=== PATIENT | female | born 1950 | race Hispanic/Latino ===

== ENCOUNTER → 2018-07-22 | Day surgery (SDC) | payer MEDICARE ==
[2018-07-20 14:07] LABS: BASOPHILS % 0.4 % (0.0-1.0); EOSINOPHILS # (AUTO) 0.1 (0.0-0.4); EOSINOPHILS % 3.1 % (0.0-6.0); HEMATOCRIT 27.6 % (34.2-44.1); LYMPHOCYTES # (AUTO) 0.6 (1.0-3.2); LYMPHOCYTES % 12.7 % (18.0-39.1); MEAN CORPUSCULAR HEMOGLOBIN 28.5 pg (28-32); MEAN CORPUSCULAR HGB CONC 32.6 g/dL (31-35); MEAN CORPUSCULAR VOLUME 87.3 fL (81-99); MONOCYTES # (AUTO) 0.4 (0.2-0.8); MONOCYTES % 7.7 % (4.4-11.3); NEUTROPHILS # (AUTO) 3.5 (2.1-6.9); NEUTROPHILS % 75.7 % (38.7-80.0); PLATELET COUNT 180 x10e3/uL (140-360); RED BLOOD COUNT 3.16 x10e6/uL (3.6-5.1)
[~2018-07-22] MED LIST: ATORVASTATIN CA80 MG PO; BENZONATATE100 MG PO; CARVEDILOL6.25 MG; CILOSTAZOL100 MG PO; FENTANYL CITRATE/PF 100MCG/2 ML INJ ONE; FUROSEMIDE40 MG PO; GLIPIZIDE5 MG PO; JANUMET 50-1,01 EACH PO; JANUMET 50-5001 EACH; LEVAQUIN500 MG PO; LOSARTAN POTAS100 MG PO; METHYLPREDNISOLO4 MG PO; METOLAZONE5 MG PO; MIDAZOLAM HCL 2 MG/2 ML VIAL ONE; NEXIUM40 MG PO; PIOGLITAZONE HC45 MG PO; PROPOFOL IV EMULSION 10 MG/ML 50 ML VIAL ONE; TYLENOL WITH C1 EACH PO
--- OUTSIDE RECORDS SUMMARY | 2018-07-22 09:40 | XMS REPORT | Clinical Summary ---
Author Author [facility] Organization [facility] Address Unknown Phone Unavailable Care Team Providers Care Horn Player Name Role Phone Asked, No Pcp PCP Unavailable Allergies No Known Allergies Medications End Date Status Medication Sig Dispensed Refills Start Date Active atorvastatin (LIPITOR) 80 Take 80 mg by 0 MG tablet mouth nightly. Active carvedilol (COREG) 6.25 Take 6.25 mg 0 MG tablet by mouth 2 (two) times a day with meals. Active cilostazol (PLETAL) 100 Take 100 mg 0 MG tablet by mouth daily. Take after dinner Active esomeprazole (NexIUM) 40 Take 40 mg by 0 MG capsule mouth daily before breakfast. Active glipiZIDE (GLUCOTROL) 10 Take 10 mg by 0 MG tablet mouth 2 (two) times a day before meals. Active losartan (COZAAR) 100 MG Take 100 mg 0 tablet by mouth daily. Active sitaGLIPtin (JANUVIA) 50 Take 50 mg by 0 MG tablet mouth 2 (two) times a day. Active metFORMIN (GLUCOPHAGE) Take 1,000 mg 0 1,000 mg tablet by mouth 2 (two) times a day with meals. 10/06/2018 Active ergocalciferol (VITAMIN Take 1 4 capsule 11 D2) 50,000 unit capsule capsule 8 (50,000 Units total) by mouth once a week. Active REGRANEX 0.01 % gel Apply a bruce 1 thick (04/21 8 inch) layer to ulcer every day as directed. 12 hours on and 12 hours off Active cephalexin (KEFLEX) 500 TK 1 C PO TID 0 MG capsule FOR 10 DAYS 8 Active cyanocobalamin 1,000 INJECT 1ML IN 2 mcg/mL injection THE MUSCLE Q 8 MONTH Active pioglitazone (ACTOS) 30 TK 1 T PO 4 MG tablet ONCE D FOR 8 DIABETES Active sulfamethoxazole-trimetho TK 1 T PO BID 0 prim (BACTRIM DS) 800-160 FOR 14 DAYS. 8 mg per tablet DRK PLENTY OF FLUIDS Active terbinafine HCl (LamiSIL) TK 1 T PO D. 1 250 mg tablet NO ALCOHOL 8 DURING THIS TIME Active traMADol (ULTRAM) 50 mg TK 1 T PO Q 6 1 tablet H PRN 8 10/06/2017 Discontinued traMADol (ULTRAM) 50 mg Take 50 mg by 0 tablet mouth every 4 (four) hours. As needed 10/30/2017 Discontinued aspirin (ECOTRIN) 325 MG Take 1 tablet 30 tablet 0 enteric coated tablet (325 mg 8 total) by mouth daily for 30 days. 11/05/2017 insulin NPH (HumuLIN-N) Inject 15 10 mL 12 100 unit/mL injection Units under 8 the skin nightly for 30 days. 11/05/2017 insulin NPH (HumuLIN-N) Inject 20 10 mL 12 100 unit/mL injection Units under 8 the skin daily for 30 days. 11/06/2017 spironolactone Take 1 tablet 30 tablet 0 (ALDACTONE) 25 MG tablet (25 mg total) 8 by mouth daily for 30 days. 11/06/2017 clopidogrel (PLAVIX) 75 Take 1 tablet 30 tablet 0 mg tablet (75 mg total) 8 by mouth daily for 30 days. 11/05/2017 riFAXimin (XIFAXAN) 550 Take 1 tablet 60 tablet 0 mg tablet (550 mg 8 total) by mouth 2 (two) times a day for 30 days. 11/05/2017 nystatin (MYCOSTATIN) Apply 100 g 0 100,000 unit/gram powder topically 2 8 (two) times a day for 30 days. 10/11/2017 traMADol (ULTRAM) 50 mg Take 1 tablet 10 tablet 0 tablet (50 mg total) 8 by mouth every 8 (eight) hours as needed for moderate pain for up to 5 days. As needed Active Problems Problem Noted Date Gastrointestinal hemorrhage 10/29/2017 Electrolyte abnormality 10/29/2017 Liver, cirrhosis, portal 09/20/2017 Esophageal varices in cirrhosis 09/20/2017 Essential hypertension 09/20/2017 Type 2 diabetes mellitus with circulatory disorder 09/20/2017 Coronary artery disease involving nondalton coronary artery of nondalton heart 09/20/2017 without angina pectoris Colostomy present on admission 09/20/2017 Electrolyte abnormality 09/19/2017 Skin ulcer of toe of right foot with fat layer exposed 09/19/2017 GI bleed 09/18/2017 Gastrointestinal hemorrhage with melena 09/18/2017 Overview: Added automatically from request for surgery [id number] Encounters Care Team Description Date Type Specialty Yehuda Contreras MD Bavare, MD Ruddy Rice Amitkumar Natvarlal, MD Gastrointestinal hemorrhage, unspecified gastrointestinal hemorrhage type (Primary Dx) 10/28/2017 Emergency General Surgery - 10/30/2017 Abdiaziz Troncoso MD Removal of bere (Primary Dx) 10/15/2017 Office Visit General Surgery Idalia Hernandez LVN 10/15/2017 Telephone Hepatology Abdiaziz Troncoso MD 10/08/2017 Office Visit General Surgery Lamar Stevenson NP 10/06/2017 Refill Endocrinology Lainey Livingston MD 10/05/2017 Anesthesia Orthopedic Surgery Event Manjeet Magana DPM AMPUTATION, SECOND TOE 10/05/2017 Surgery Orthopedic Surgery Jason Rockwell MD 09/30/2017 Anesthesia General Surgery Event Abdiaziz Troncoso MD RIGHT FEMORAL POPLITEAL BYPASS 09/30/2017 Surgery General Surgery Glenna Riggs MA Shortness of breath (Primary Dx) 09/30/2017 Orders Only Pulmonology Wisam Luna MD Cv aortogram abdominal aorta with BLE runoff [16415 (CPT)] 09/29/2017 Surgery Procedural Cardiology Roxanne Umaña 09/24/2017 Orders Only General Internal Medicine Mynor Strong MD 09/22/2017 Anesthesia Gastroenterology Event Evi Banks MD EUS @ BS with vascular coil placement and glue injection 09/22/2017 Surgery Gastroenterology Mohamud Powell MD 09/22/2017 Documentation Gastroenterology Ethan Oquendo II, NELLY 09/20/2017 Anesthesia General Surgery Event Licha Blevins MD ESOPHAGOGASTRODUODENOSCOPY (EGD) 09/20/2017 Surgery General Surgery Hernan Booker MD Joglekar, Swati, MD Patel, MD [place] Suzanne K., MD Osteomyelitis (Primary Dx); Iron deficiency anemia due to chronic blood loss; Essential hypertension; Gastrointestinal hemorrhage, unspecified gastrointestinal hemorrhage type; Type 2 diabetes mellitus with other ophthalmic complication, without long-term current use of insulin; Gastrointestinal hemorrhage with melena; Pulmonary hypertension; Liver, cirrhosis, portal; Peripheral arterial disease 09/18/2017 Hospital Cardiovascular - Encounter 10/06/2017 after 07/21/2017 Family History Medical History Relation Name Comments Diabetes Brother Diabetes Father Hypertension Father Diabetes Mother Diabetes Sister Relation Name Status Comments Brother Father Mother Sister Social History Date Tobacco Use Types Packs/Day Years Used Former Smoker Cigarettes Smokeless Tobacco: Former User Alcohol Use Drinks/Week oz/Week Comments No Sex Assigned at Date Recorded Not on file Industry Job Start Date Occupation Not on file Not on file Not on file Travel End Travel History Travel Start No recent travel history available. Last Filed Vital Signs Time Taken Vital Sign Reading 10/30/2017 7:26 AM CDT Blood Pressure 126/68 10/30/2017 7:26 AM CDT Pulse 66 10/30/2017 7:26 AM CDT Temperature 36.4 C (97.5 F) 10/30/2017 7:26 AM CDT Respiratory Rate 18 10/30/2017 7:26 AM CDT Oxygen Saturation 99% - Inhaled Oxygen - Concentration 10/08/2017 4:11 PM CDT Weight 83 kg (183 lb) 10/29/2017 2:55 AM CDT Height 160 cm (5' 3") 10/08/2017 4:11 PM CDT Body Mass Index 33.47 Plan of Treatment Health Maintenance Due Date Last Done Comments DIABETIC RETINAL EYE EXAM 1950 URINE MICROALBUMIN 1958 BREAST CANCER SCREENING 1998 COLON CANCER SCREENING 1998 SHINGLES VACCINES (#1) 1998 65+ PNEUMOCOCCAL VACCINE 2013 (1 of 2 - PCV13) PNEUMOCOCCAL 2013 POLYSACCHARIDE VACCINE AGE 65 AND OVER DIABETIC FOOT EXAM 09/19/2018 09/19/2017, 09/19/2017 INFLUENZA VACCINE 11/04/2018 Implants Device Identifier Shelf Expiration Date Model / Serial / Lot Implanted Type Area Manufactur er 04/28/2022 [id number] / [id number] / [id number] Graft Vasclr [employer] Vascular N/A: N/A [employer] Ringed [id number] - [id number] Graft Implanted: 09/30/2017 (Quantity not on file) Procedures Comments Procedure Name Priority Date/Time Associated Diagnosis TRANSFUSE RED BLOOD CELLS Routine 12/09/2017 5:55 PM CDT POC GLUCOSE Routine 10/30/2017 7:44 AM CDT POC GLUCOSE Routine 10/30/2017 6:37 AM CDT ZZESTIMATED GFR Routine 10/30/2017 4:15 AM CDT HC COMPLETE BLD COUNT Routine 10/30/2017 W/AUTO DIFF 4:15 AM CDT BASIC METABOLIC PANEL Routine 10/30/2017 4:15 AM CDT POC GLUCOSE Routine 10/29/2017 10:06 PM CDT POC GLUCOSE Routine 10/29/2017 5:02 PM CDT HEMOGLOBIN & HEMATOCRIT Routine 10/29/2017 4:03 PM CDT POC GLUCOSE Routine 10/29/2017 10:53 AM CDT TRANSFUSE RED BLOOD CELLS STAT 10/29/2017 9:46 AM CDT POC GLUCOSE Routine 10/29/2017 7:12 AM CDT TRANSFUSE RED BLOOD CELLS STAT 10/29/2017 5:33 AM CDT POC GLUCOSE Routine 10/29/2017 3:05 AM CDT ECG 12-LEAD STAT 10/29/2017 1:48 AM CDT GA CRITICAL CARE, E/M Routine 10/29/2017 30-74 MINUTES 12:50 AM CDT PREPARE RBC Timed 10/28/2017 11:42 PM CDT ZZESTIMATED GFR STAT 10/28/2017 11:42 PM CDT LIPASE LEVEL STAT 10/28/2017 11:42 PM CDT COMPREHENSIVE METABOLIC STAT 10/28/2017 PANEL 11:42 PM CDT TYPE AND SCREEN Routine 10/28/2017 11:42 PM CDT PARTIAL THROMBOPLASTIN STAT 10/28/2017 TIME (PTT) 11:42 PM CDT PROTHROMBIN TIME WITH INR STAT 10/28/2017 11:42 PM CDT HC COMPLETE BLD COUNT STAT 10/28/2017 W/AUTO DIFF 11:42 PM CDT POC GLUCOSE Routine 10/06/2017 11:11 AM CDT HEMOGLOBIN & HEMATOCRIT Routine 10/06/2017 10:02 AM CDT POC GLUCOSE Routine 10/06/2017 8:01 AM CDT POC GLUCOSE Routine 10/06/2017 7:28 AM CDT ZZESTIMATED GFR Routine 10/06/2017 4:30 AM CDT BASIC METABOLIC PANEL Routine 10/06/2017 4:30 AM CDT CBC HEMOGRAM Routine 10/06/2017 4:30 AM CDT POC GLUCOSE Routine 10/05/2017 11:07 PM CDT XR FOOT 3+ VW RIGHT Routine 10/05/2017 8:52 PM CDT POC GLUCOSE Routine 10/05/2017 6:01 PM CDT SURGICAL PATHOLOGY Routine 10/05/2017 REQUEST 4:46 PM CDT POC GLUCOSE Routine 10/05/2017 4:29 PM CDT AFB CULTURE Timed 10/05/2017 Osteomyelitis 4:11 PM CDT AEROBIC CULTURE Timed 10/05/2017 Osteomyelitis 4:11 PM CDT FUNGUS CULTURE Timed 10/05/2017 Osteomyelitis 4:11 PM CDT ANAEROBIC CULTURE Timed 10/05/2017 Osteomyelitis 4:11 PM CDT FUNGUS SMEAR Timed 10/05/2017 4:02 PM CDT AFB STAIN Timed 10/05/2017 4:02 PM CDT GRAM STAIN Timed 10/05/2017 4:02 PM CDT AFB CULTURE Timed 10/05/2017 Osteomyelitis 4:02 PM CDT AEROBIC CULTURE Timed 10/05/2017 Osteomyelitis 4:02 PM CDT FUNGUS CULTURE Timed 10/05/2017 Osteomyelitis 4:02 PM CDT ANAEROBIC CULTURE Timed 10/05/2017 Osteomyelitis 4:02 PM CDT AMPUTATION, TOE 10/05/2017 Osteomyelitis 3:00 PM CDT Case Notes TF REInocencio 1500 START, @1131 MICHAEL REQ CASE TO SARAH 10/02/17TW ([facility] STAFF TO SARAH), @1623 FRANCISCO AND MICHAEL MV CASE BACK TO [facility]IA [facility]Y 10/02/17TW Special Needs TF, REQ 1500 START POC GLUCOSE Routine 10/05/2017 2:51 PM CDT SPIROMETRY PRE AND POST Routine 10/05/2017 Pulmonary hypertension WITH BRONCHILATOR, 11:37 AM CDT DIFFUSION, LUNG VOLUMES URINALYSIS SCREEN AND Routine 10/05/2017 MICROSCOPY, WITH REFLEX 8:46 AM CDT TO CULTURE GRAM STAIN Routine 10/05/2017 8:46 AM CDT URINE CULTURE Routine 10/05/2017 8:46 AM CDT POC GLUCOSE Routine 10/05/2017 7:53 AM CDT HC COMPLETE BLD COUNT STAT 10/05/2017 W/AUTO DIFF 5:52 AM CDT ZZESTIMATED GFR Routine 10/05/2017 4:00 AM CDT BASIC METABOLIC PANEL Routine 10/05/2017 4:00 AM CDT SMEAR REVIEW Routine 10/05/2017 3:50 AM CDT TYPE AND SCREEN Routine 10/05/2017 3:50 AM CDT PROTHROMBIN TIME WITH INR Routine 10/05/2017 3:50 AM CDT HC COMPLETE BLD COUNT Routine 10/05/2017 W/AUTO DIFF 3:50 AM CDT POC GLUCOSE Routine 10/05/2017 1:43 AM CDT POC GLUCOSE Routine 10/04/2017 8:39 PM CDT POC GLUCOSE Routine 10/04/2017 4:48 PM CDT POC GLUCOSE Routine 10/04/2017 11:38 AM CDT POC GLUCOSE Routine 10/04/2017 7:31 AM CDT ZZESTIMATED GFR Routine 10/04/2017 3:12 AM CDT MAGNESIUM LEVEL Routine 10/04/2017 3:12 AM CDT BASIC METABOLIC PANEL Routine 10/04/2017 3:12 AM CDT POC GLUCOSE Routine 10/03/2017 8:55 PM CDT POC GLUCOSE Routine 10/03/2017 4:58 PM CDT POC GLUCOSE Routine 10/03/2017 12:21 PM CDT HC COMPLETE BLD COUNT Routine 10/03/2017 W/AUTO DIFF 8:13 AM CDT POC GLUCOSE Routine 10/03/2017 8:11 AM CDT ZZESTIMATED GFR Routine 10/03/2017 4:00 AM CDT BASIC METABOLIC PANEL Routine 10/03/2017 4:00 AM CDT VITAMIN D 25 HYDROXY Routine 10/03/2017 LEVEL 4:00 AM CDT POC GLUCOSE Routine 10/02/2017 8:38 PM CDT POC GLUCOSE Routine 10/02/2017 4:45 PM CDT POC GLUCOSE Routine 10/02/2017 3:39 PM CDT POC GLUCOSE Routine 10/02/2017 11:35 AM CDT CBC WITH PLATELET AND Routine 10/02/2017 DIFFERENTIAL 8:19 AM CDT POC GLUCOSE Routine 10/02/2017 7:41 AM CDT ZZESTIMATED GFR Routine 10/02/2017 4:00 AM CDT BASIC METABOLIC PANEL Routine 10/02/2017 4:00 AM CDT POC GLUCOSE Routine 10/01/2017 9:03 PM CDT HEPATIC FUNCTION PANEL Routine 10/01/2017 5:43 PM CDT POC GLUCOSE Routine 10/01/2017 5:01 PM CDT POC GLUCOSE Routine 10/01/2017 1:19 PM CDT POC GLUCOSE Routine 10/01/2017 11:35 AM CDT POC GLUCOSE Routine 10/01/2017 11:29 AM CDT POC GLUCOSE Routine 10/01/2017 7:45 AM CDT PHOSPHORUS LEVEL Routine 10/01/2017 4:00 AM CDT MAGNESIUM LEVEL Routine 10/01/2017 4:00 AM CDT ZZESTIMATED GFR Routine 10/01/2017 4:00 AM CDT HC COMPLETE BLD COUNT Routine 10/01/2017 W/AUTO DIFF 4:00 AM CDT BASIC METABOLIC PANEL Routine 10/01/2017 4:00 AM CDT POC GLUCOSE Routine 09/30/2017 9:01 PM CDT XR CHEST 1 VW PORTABLE Routine 09/30/2017 5:57 PM CDT POC GLUCOSE Routine 09/30/2017 5:43 PM CDT OR FL < 1 HOUR Routine 09/30/2017 Peripheral arterial 4:12 PM CDT disease CENTRAL LINE Routine 09/30/2017 2:48 PM CDT Procedure Note - Jason Rockwell, MD - 09/30/2017 2:48 PM CDT Central line Performed by: JASON ROCKWELL Authorized by: JASON ROCKWELL Patient Location: OR Start Time: 09/30/2017 2:30 PM End Time: 09/30/2017 2:37 PM Staff: Performed by: Anesthesio logist Preprocedu re:patient identified , IV checked, site and side verified, risks and benefits discussed, procedure verified, surgical consent complete, patient position confirmed, monitors and equipment checked and pre-op evaluation complete MSBT: antiseptic used during central venous catheter insertion, all elements of maximal sterile barrier technique followed, hand hygiene performed prior to central venous catheter insertion, cap/gown used by other personnel during central venous catheter insertion, solutions labeled and all ports not used during insertion clamped TIme Out Performed: 09/30/2017 2:30 PM Indication s: Indication s: Vascular access Anesthesia : Anesthesia : General Procedure details: Patient position: Supine Catheter Type: Double lumen Catheter Size: 8 Fr Catheter Site: internal jugular vein Catheter site laterality : Right Ultrasound guidance used: No Ultrasound image saved: No Number of attempts: 1 Successful placement: Yes Guidewire removal witnessed by: Dorie MOSES Post-proce dure: Post-proce dure: line sutured and sterile dressing applied per protocol Post-proce dure: Blood cleaned with CHG and sterile caps on all hubs Assessment : Blood return through all ports and free fluid flow Patient tolerance: Patient tolerated the procedure well with no immediate complicati ons ARTERIAL LINE Routine 09/30/2017 2:47 PM CDT Procedure Note - Jason Rockwell MD - 09/30/2017 2:47 PM CDT Arterial line Performed by: JASON ROCKWELL Authorized by: JASON ROCKWELL Patient Location: OR Start Time: 09/30/2017 2:24 PM End Time: 09/30/2017 2:29 PM Staff: Performed by: Sharri donohue Pre-proced ure: patient identified , IV checked, site and side verified, risks and benefits discussed, procedure verified, surgical consent complete, patient position confirmed, monitors and equipment checked and pre-op evaluation complete MSBT: antiseptic used, all elements of maximal sterile barrier technique followed, hand hygiene performed, cap/gown used by other personnel and solutions labeled TIme Out Performed: 09/30/2017 2:24 PM Indication s: Indication s: multiple ABGs and hemodynami c monitoring Anesthesia : Anesthesia : General Procedure Details: Arterial Line placement: Placed post induction Line placement site: Radial Line placement side: Right Arterial line gauge: 20 G Number of attempts: 1 Ultrasound guidance used: No Post-proce dure: Post-proce dure: Sterile dressing applied Post procedure circulatio n, sensation, movement: Normal and unchanged Patient tolerance: Patient tolerated the procedure well with no immediate complicati ons GA AN ELECTIVE Routine 09/30/2017 ENDOTRACHEAL AIRWAY 2:42 PM CDT Procedure Note - Jason Rockwlel MD - 09/30/2017 2:42 PM CDT Airway Performed by: JASON ROCKWELL Authorized by: JASON ROCKWELL Location: OR Urgency: Elective Difficult Airway: No Preoxygena dwight with 100% O2: Yes C-spine Precaution s Maintained Throughout : Yes Mask Ventilatio n: Easy mask Final Airway Type: Endotrache al airway Final Endotrache al Airway: ETT Technique Used: Direct laryngosco py Blade Type: Ku Laryngosco pe Blade/Vide olaryngosc ope Blade Size: 2 ETT Size (mm): 7.0 Measured from: Lips ETT to Lips (cm): 21 Placement Verified by: CO2 detection, direct visualizat ion and equal breath sounds Laryngosco pic view: Grade I - full view of glottis Rapid Sequence Induction (RSI): No Modified RSI: No Number of Attempts at Approach: 1 CREATION, BYPASS, 09/30/2017 Peripheral arterial ARTERIAL, FEMORAL TO 1:10 PM CDT disease POPLITEAL, USING VEIN GRAFT POC GLUCOSE Routine 09/30/2017 12:19 PM CDT POC GLUCOSE Routine 09/30/2017 8:42 AM CDT ZZESTIMATED GFR Routine 09/30/2017 5:53 AM CDT PHOSPHORUS LEVEL Routine 09/30/2017 5:53 AM CDT MAGNESIUM LEVEL Routine 09/30/2017 5:53 AM CDT PARTIAL THROMBOPLASTIN Routine 09/30/2017 TIME (PTT) 5:53 AM CDT PROTHROMBIN TIME WITH INR Routine 09/30/2017 5:53 AM CDT CBC WITH PLATELET AND Routine 09/30/2017 DIFFERENTIAL 5:53 AM CDT BASIC METABOLIC PANEL Routine 09/30/2017 5:53 AM CDT POC GLUCOSE Routine 09/30/2017 4:47 AM CDT POC GLUCOSE Routine 09/30/2017 12:52 AM CDT TRANSFUSE RED BLOOD CELLS Routine 09/29/2017 9:44 PM CDT POC GLUCOSE Routine 09/29/2017 9:13 PM CDT POC GLUCOSE Routine 09/29/2017 5:53 PM CDT PREPARE RBC STAT 09/29/2017 4:56 PM CDT PREPARE PLATELET PHERESIS STAT 09/29/2017 4:56 PM CDT PREPARE FRESH FROZEN STAT 09/29/2017 PLASMA 4:56 PM CDT PREPARE RBC STAT 09/29/2017 4:56 PM CDT PREPARE RBC STAT 09/29/2017 4:56 PM CDT PARTIAL THROMBOPLASTIN STAT 09/29/2017 TIME (PTT) 4:56 PM CDT PROTHROMBIN TIME WITH INR STAT 09/29/2017 4:56 PM CDT TYPE AND SCREEN STAT 09/29/2017 4:56 PM CDT MAGNESIUM LEVEL STAT 09/29/2017 3:29 PM CDT POTASSIUM LEVEL STAT 09/29/2017 3:29 PM CDT POC GLUCOSE Routine 09/29/2017 12:12 PM CDT POC GLUCOSE Routine 09/29/2017 9:29 AM CDT CV AORTOGRAM ABDOMINAL Routine 09/29/2017 AORTA 9:02 AM CDT POC GLUCOSE Routine 09/29/2017 8:04 AM CDT POC GLUCOSE Routine 09/29/2017 5:20 AM CDT ZZESTIMATED GFR Routine 09/29/2017 5:08 AM CDT HC COMPLETE BLD COUNT Routine 09/29/2017 W/AUTO DIFF 5:08 AM CDT BASIC METABOLIC PANEL Routine 09/29/2017 5:08 AM CDT POC GLUCOSE Routine 09/28/2017 9:58 PM CDT POC GLUCOSE Routine 09/28/2017 5:39 PM CDT COPPER, URINE Routine 09/28/2017 4:08 PM CDT POTASSIUM LEVEL Timed 09/28/2017 4:00 PM CDT POC GLUCOSE Routine 09/28/2017 11:48 AM CDT NM CARDIAC SHUNT Routine 09/28/2017 EVALUATION 10:54 AM CDT NM LUNG VENTILATION Routine 09/28/2017 PERFUSION 10:53 AM CDT POC GLUCOSE Routine 09/28/2017 7:21 AM CDT POC GLUCOSE Routine 09/28/2017 5:38 AM CDT ZZESTIMATED GFR Routine 09/28/2017 4:30 AM CDT B NATRIURETIC PEPTIDE Routine 09/28/2017 4:30 AM CDT HC COMPLETE BLD COUNT Routine 09/28/2017 W/AUTO DIFF 4:30 AM CDT BASIC METABOLIC PANEL Routine 09/28/2017 4:30 AM CDT POC GLUCOSE Routine 09/27/2017 9:32 PM CDT POC GLUCOSE Routine 09/27/2017 5:24 PM CDT POC GLUCOSE Routine 09/27/2017 5:[address] CHEST WO CONTRAST Routine 09/27/2017 2:34 PM CDT POC GLUCOSE Routine 09/27/2017 12:17 PM CDT POC GLUCOSE Routine 09/27/2017 7:58 AM CDT POC GLUCOSE Routine 09/27/2017 6:54 AM CDT ZZESTIMATED GFR Routine 09/27/2017 3:00 AM CDT HC COMPLETE BLD COUNT Routine 09/27/2017 W/AUTO DIFF 3:00 AM CDT COMPREHENSIVE METABOLIC Routine 09/27/2017 PANEL 3:00 AM CDT POC GLUCOSE Routine 09/26/2017 9:03 PM CDT POC GLUCOSE Routine 09/26/2017 5:50 PM CDT POC GLUCOSE Routine 09/26/2017 12:06 PM CDT POC GLUCOSE Routine 09/26/2017 7:48 AM CDT ZZESTIMATED GFR Routine 09/26/2017 5:45 AM CDT HEMOGLOBIN & HEMATOCRIT Routine 09/26/2017 5:45 AM CDT BASIC METABOLIC PANEL Routine 09/26/2017 5:45 AM CDT POC GLUCOSE Routine 09/26/2017 5:43 AM CDT POC GLUCOSE Routine 09/25/2017 9:16 PM CDT POC GLUCOSE Routine 09/25/2017 6:04 PM CDT POC GLUCOSE Routine 09/25/2017 12:19 PM CDT POC GLUCOSE Routine 09/25/2017 9:47 AM CDT ZZESTIMATED GFR Routine 09/25/2017 5:28 AM CDT IONIZED CALCIUM Routine 09/25/2017 5:28 AM CDT PHOSPHORUS LEVEL Routine 09/25/2017 5:28 AM CDT MAGNESIUM LEVEL Routine 09/25/2017 5:28 AM CDT CBC WITH PLATELET AND Routine 09/25/2017 DIFFERENTIAL 5:28 AM CDT BASIC METABOLIC PANEL Routine 09/25/2017 5:28 AM CDT POC GLUCOSE Routine 09/25/2017 4:44 AM CDT ARTERIAL BLOOD GAS Routine 09/25/2017 12:45 AM CDT POC GLUCOSE Routine 09/24/2017 9:35 PM CDT ARTERIAL BLOOD GAS Routine 09/24/2017 7:40 PM CDT POC GLUCOSE Routine 09/24/2017 6:35 PM CDT POC GLUCOSE Routine 09/24/2017 12:25 PM CDT POC GLUCOSE Routine 09/24/2017 9:04 AM CDT ZZESTIMATED GFR Routine 09/24/2017 7:08 AM CDT CRP HIGH SENSITIVITY Routine 09/24/2017 7:08 AM CDT SEDIMENTATION RATE Routine 09/24/2017 7:08 AM CDT IONIZED CALCIUM Routine 09/24/2017 7:08 AM CDT PHOSPHORUS LEVEL Routine 09/24/2017 7:08 AM CDT MAGNESIUM LEVEL Routine 09/24/2017 7:08 AM CDT HC COMPLETE BLD COUNT Routine 09/24/2017 W/AUTO DIFF 7:08 AM CDT BASIC METABOLIC PANEL Routine 09/24/2017 7:08 AM CDT POC GLUCOSE Routine 09/23/2017 9:13 PM CDT POC GLUCOSE Routine 09/23/2017 5:27 PM CDT POC GLUCOSE Routine 09/23/2017 12:13 PM CDT US DUPLEX ARTERIAL LOWER STAT 09/23/2017 EXTREMITY LEFT 11:58 AM CDT HC COMPLETE BLD COUNT Routine 09/23/2017 W/AUTO DIFF 9:54 AM CDT ZZESTIMATED GFR Routine 09/23/2017 9:00 AM CDT IONIZED CALCIUM Routine 09/23/2017 9:00 AM CDT PHOSPHORUS LEVEL Routine 09/23/2017 9:00 AM CDT MAGNESIUM LEVEL Routine 09/23/2017 9:00 AM CDT BASIC METABOLIC PANEL Routine 09/23/2017 9:00 AM CDT POC GLUCOSE Routine 09/23/2017 8:36 AM CDT POC GLUCOSE Routine 09/23/2017 4:56 AM CDT ZZESTIMATED GFR Routine 09/23/2017 2:59 AM CDT IONIZED CALCIUM Routine 09/23/2017 2:59 AM CDT PHOSPHORUS LEVEL Routine 09/23/2017 2:59 AM CDT MAGNESIUM LEVEL Routine 09/23/2017 2:59 AM CDT BASIC METABOLIC PANEL Routine 09/23/2017 2:59 AM CDT HC COMPLETE BLD COUNT Routine 09/23/2017 W/AUTO DIFF 2:35 AM CDT POC GLUCOSE Routine 09/23/2017 1:19 AM CDT POC GLUCOSE Routine 09/22/2017 7:11 PM CDT POC GLUCOSE Routine 09/22/2017 4:02 PM CDT ESOPHAGOGASTRODUODENOSCOP 09/22/2017 Gastrointestinal Y (EGD) 3:00 PM CDT hemorrhage with melena US UPPER GI TRACT, 09/22/2017 Gastrointestinal ENDOSCOPIC 3:00 PM CDT hemorrhage with melena US DUPLEX ARTERIAL LOWER Routine 09/22/2017 EXTREMITY RIGHT 2:45 PM CDT POC GLUCOSE Routine 09/22/2017 11:40 AM CDT HC COMPLETE BLD COUNT STAT 09/22/2017 W/AUTO DIFF 9:05 AM CDT POC GLUCOSE Routine 09/22/2017 8:07 AM CDT POC GLUCOSE Routine 09/22/2017 4:35 AM CDT ZZESTIMATED GFR Routine 09/22/2017 3:32 AM CDT HEPATIC FUNCTION PANEL Routine 09/22/2017 3:32 AM CDT BASIC METABOLIC PANEL Routine 09/22/2017 3:32 AM CDT PREPARE RBC Timed 09/22/2017 3:00 AM CDT SMEAR REVIEW Routine 09/22/2017 3:00 AM CDT TYPE AND SCREEN Timed 09/22/2017 3:00 AM CDT PROTHROMBIN TIME WITH INR Routine 09/22/2017 3:00 AM CDT HC COMPLETE BLD COUNT Routine 09/22/2017 W/AUTO DIFF 3:00 AM CDT POC GLUCOSE Routine 09/22/2017 12:58 AM CDT POC GLUCOSE Routine 09/21/2017 8:29 PM CDT HEMOGLOBIN & HEMATOCRIT Routine 09/21/2017 8:15 PM CDT POC GLUCOSE Routine 09/21/2017 5:13 PM CDT LIVER-KIDNEY MICROSOME Routine 09/21/2017 AB, IGG 4:45 PM CDT POC GLUCOSE Routine 09/21/2017 2:53 PM CDT MRI FOOT WO CONTRAST Routine 09/21/2017 RIGHT 2:[address] ABDOMEN WWO CONTRAST Routine 09/21/2017 PELVIS W CONTRAST 1:22 PM CDT CARCINOEMBRYONIC ANTIGEN Routine 09/21/2017 (CEA) 10:26 AM CDT ALPHA FETOPROTEIN Routine 09/21/2017 10:26 AM CDT IMMUNOGLOBULIN M Routine 09/21/2017 10:26 AM CDT IMMUNOGLOBULIN A Routine 09/21/2017 10:26 AM CDT IMMUNOGLOBULIN G Routine 09/21/2017 10:26 AM CDT FERRITIN LEVEL Routine 09/21/2017 10:26 AM CDT CERULOPLASMIN LEVEL Routine 09/21/2017 10:26 AM CDT ALPHA-1 ANTITRYPSIN LEVEL Routine 09/21/2017 10:26 AM CDT LIPID PANEL Routine 09/21/2017 10:26 AM CDT XR CHEST 1 VW PORTABLE STAT 09/21/2017 10:12 AM CDT HEMOGLOBIN & HEMATOCRIT Routine 09/21/2017 9:57 AM CDT POC GLUCOSE Routine 09/21/2017 8:14 AM CDT HEMOGLOBIN & HEMATOCRIT Timed 09/21/2017 6:10 AM CDT POC GLUCOSE Routine 09/21/2017 4:54 AM CDT ZZESTIMATED GFR Routine 09/21/2017 12:34 AM CDT PHOSPHORUS LEVEL Routine 09/21/2017 12:34 AM CDT MAGNESIUM LEVEL Routine 09/21/2017 12:34 AM CDT HEPATIC FUNCTION PANEL Routine 09/21/2017 12:34 AM CDT BASIC METABOLIC PANEL Routine 09/21/2017 12:34 AM CDT POC GLUCOSE Routine 09/21/2017 12:27 AM CDT PROTHROMBIN TIME WITH INR Routine 09/21/2017 12:20 AM CDT HC COMPLETE BLD COUNT Routine 09/21/2017 W/AUTO DIFF 12:20 AM CDT FUNGUS SMEAR Routine 09/20/2017 10:40 PM CDT AFB STAIN Routine 09/20/2017 10:40 PM CDT GRAM STAIN Routine 09/20/2017 10:40 PM CDT FUNGUS CULTURE Routine 09/20/2017 10:40 PM CDT ANAEROBIC CULTURE Routine 09/20/2017 10:40 PM CDT AFB CULTURE Routine 09/20/2017 10:40 PM CDT AEROBIC CULTURE Routine 09/20/2017 10:40 PM CDT POC GLUCOSE Routine 09/20/2017 10:07 PM CDT ECHOCARDIOGRAM 2D STAT 09/20/2017 COMPLETE W MMODE SPECTRAL 6:36 PM CDT COLOR DOPPLER ([id number]) CONSULT TO OSTOMY CARE Routine 09/20/2017 NURSE 4:45 PM CDT THYROID STIMULATING STAT 09/20/2017 HORMONE 4:31 PM CDT ZZESTIMATED GFR STAT 09/20/2017 4:31 PM CDT HEPATIC FUNCTION PANEL STAT 09/20/2017 4:31 PM CDT IONIZED CALCIUM STAT 09/20/2017 4:31 PM CDT PHOSPHORUS LEVEL STAT 09/20/2017 4:31 PM CDT MAGNESIUM LEVEL STAT 09/20/2017 4:31 PM CDT BASIC METABOLIC PANEL STAT 09/20/2017 4:31 PM CDT JESSY TITER Routine 09/20/2017 4:15 PM CDT ANTI MITOCHONDRIA SCREEN Routine 09/20/2017 4:15 PM CDT ANTI SMOOTH MUSCLE AB Routine 09/20/2017 SCREEN 4:15 PM CDT JESSY Routine 09/20/2017 4:15 PM CDT CBC HEMOGRAM STAT 09/20/2017 4:15 PM CDT POC GLUCOSE Routine 09/20/2017 3:36 PM CDT THROMBOELASTOGRAPH STAT 09/20/2017 3:28 PM CDT FIBRINOGEN STAT 09/20/2017 3:28 PM CDT PROTHROMBIN TIME WITH INR STAT 09/20/2017 3:28 PM CDT US ABDOMINAL DOPPLER STAT 09/20/2017 2:42 PM CDT POC GLUCOSE Routine 09/20/2017 1:44 PM CDT POC GLUCOSE Routine 09/20/2017 12:33 PM CDT POC GLUCOSE Routine 09/20/2017 11:05 AM CDT ESOPHAGOGASTRODUODENOSCOP 09/20/2017 Gastrointestinal Y (EGD) 10:25 AM CDT hemorrhage with melena PROTHROMBIN TIME WITH INR Routine 09/20/2017 5:45 AM CDT CBC WITH PLATELET AND Routine 09/20/2017 DIFFERENTIAL 5:45 AM CDT ZZESTIMATED GFR Routine 09/20/2017 4:00 AM CDT MAGNESIUM LEVEL Routine 09/20/2017 4:00 AM CDT PHOSPHORUS LEVEL Routine 09/20/2017 4:00 AM CDT COMPREHENSIVE METABOLIC Routine 09/20/2017 PANEL 4:00 AM CDT LACTIC ACID LEVEL Timed 09/19/2017 3:25 PM CDT HC COMPLETE BLD COUNT Routine 09/19/2017 W/AUTO DIFF 11:35 AM CDT PROTHROMBIN TIME WITH INR STAT 09/19/2017 11:35 AM CDT PARTIAL THROMBOPLASTIN STAT 09/19/2017 TIME (PTT) 11:35 AM CDT US ABDOMEN COMPLETE Routine 09/19/2017 10:23 AM CDT HEPATITIS ACUTE PANEL Routine 09/19/2017 9:16 AM CDT LACTIC ACID LEVEL Timed 09/19/2017 9:00 AM CDT HEMOGLOBIN A1C Routine 09/19/2017 8:49 AM CDT ZZESTIMATED GFR Routine 09/19/2017 8:49 AM CDT BASIC METABOLIC PANEL Routine 09/19/2017 8:49 AM CDT TRANSFUSE RED BLOOD CELLS Routine 09/19/2017 7:42 AM CDT ZZESTIMATED GFR STAT 09/19/2017 5:07 AM CDT COMPREHENSIVE METABOLIC STAT 09/19/2017 PANEL 5:07 AM CDT TRANSFUSE RED BLOOD CELLS Routine 09/19/2017 4:42 AM CDT LACTIC ACID LEVEL, SEPSIS Timed 09/19/2017 - NOW AND REPEAT 2X EVERY 12:16 AM CDT 3 HOURS BLOOD CULTURE, AEROBIC & Routine 09/18/2017 ANAEROBIC 11:33 PM CDT BLOOD CULTURE, AEROBIC & Routine 09/18/2017 ANAEROBIC 11:33 PM CDT PREPARE RBC Timed 09/18/2017 10:23 PM CDT TYPE AND SCREEN Timed 09/18/2017 10:23 PM CDT SMEAR REVIEW STAT 09/18/2017 9:49 PM CDT ZZESTIMATED GFR STAT 09/18/2017 9:49 PM CDT LACTIC ACID LEVEL, SEPSIS STAT 09/18/2017 - NOW AND REPEAT 2X EVERY 9:49 PM CDT 3 HOURS MAGNESIUM LEVEL STAT 09/18/2017 9:49 PM CDT PHOSPHORUS LEVEL STAT 09/18/2017 9:49 PM CDT COMPREHENSIVE METABOLIC STAT 09/18/2017 PANEL 9:49 PM CDT HC COMPLETE BLD COUNT STAT 09/18/2017 W/AUTO DIFF 9:49 PM CDT XR FOOT 3+ VW RIGHT STAT 09/18/2017 9:45 PM CDT ECG 12-LEAD STAT 09/18/2017 8:46 PM CDT after 07/21/2017 Results * Transfuse RBC (12/09/2017 5:55 PM CDT) Only the most recent of 8 results within the time period is included. * POC glucose (10/30/2017 7:44 AM CDT) Only the most recent of 95 results within the time period is included. POC glucose 112 (H) 65 - 99 mg/dL [facility] DEPARTMENT OF Comment: PATHOLOGY AND No Action Needed GENOMIC MEDICINE Meter ID: [id number] District Resource Officer: Zuly Hess Performing Organization Address City/[facility] Cent[facility]ode Phone Number [facility] DEPARTMENT OF [address] [place] [address] PATHOLOGY AND GENOMIC MEDICINE * Estimated GFR (10/30/2017 4:15 AM CDT) Only the most recent of 24 results within the time period is included. GFR Non Af Amer 71 mL/min/1.73 m2 [facility] DEPARTMENT OF PATHOLOGY AND GENOMIC MEDICINE GFR Af Amer 86 mL/min/1.73 m2 [facility] DEPARTMENT OF Comment: PATHOLOGY AND Chronic kidney disease: <60 GENOMIC MEDICINE mL/min/1.73m2 Kidney failure: <15 mL/min/1.73m2 The estimated GFR is calculated from the IDMS-traceable Modification of Diet in Renal Disease Equation. The accuracy of the calculation is poor when the creatinine is normal. Calculated values >90 mL/min/1.73m2 are not reported. This equation has not been validated in children (<18 years), women, the elderly (>70 years), or ethnic groups other than Caucasians and Americans. Specimen Plasma specimen Performing Organization Address City/[facility] Cent[facility]ode Phone Number [facility] DEPARTMENT [address] [address] PATHOLOGY AND GENOMIC MEDICINE * CBC with platelet and differential (10/30/2017 4:15 AM CDT) Only the most recent of 21 results within the time period is included. WBC 5.38 4.50 - 11.00 k/uL [facility] DEPARTMENT OF PATHOLOGY AND GENOMIC MEDICINE RBC 3.00 (L) 4.20 - 5.50 m/uL [facility] DEPARTMENT OF PATHOLOGY AND GENOMIC MEDICINE HGB 9.1 (L) 12.0 - 16.0 g/dL [facility] DEPARTMENT OF PATHOLOGY AND GENOMIC MEDICINE HCT 30.0 (L) 37.0 - 47.0 % [facility] DEPARTMENT OF PATHOLOGY AND GENOMIC MEDICINE MCV 100.0 82.0 - 100.0 fL [facility] DEPARTMENT OF PATHOLOGY AND GENOMIC MEDICINE MCH 30.3 27.0 - 34.0 pg [facility] DEPARTMENT OF PATHOLOGY AND GENOMIC MEDICINE MCHC 30.3 (L) 31.0 - 37.0 g/dL [facility] DEPARTMENT OF PATHOLOGY AND GENOMIC MEDICINE RDW - SD 59.7 (H) 37.0 - 55.0 fL [facility] DEPARTMENT OF PATHOLOGY AND GENOMIC MEDICINE MPV 10.8 8.8 - 13.2 fL [facility] DEPARTMENT OF PATHOLOGY AND GENOMIC MEDICINE Platelet count 179 150 - 400 k/uL [facility] DEPARTMENT OF PATHOLOGY AND GENOMIC MEDICINE Nucleated RBC 0.00 /100 WBC [facility] DEPARTMENT OF PATHOLOGY AND GENOMIC MEDICINE Neutrophils 67.1 39.0 - 69.0 % [facility] DEPARTMENT OF PATHOLOGY AND GENOMIC MEDICINE Lymphocytes 20.8 (L) 25.0 - 45.0 % [facility] DEPARTMENT OF PATHOLOGY AND GENOMIC MEDICINE Monocytes 6.5 0.0 - 10.0 % [facility] DEPARTMENT OF PATHOLOGY AND GENOMIC MEDICINE Eosinophils 4.3 0.0 - 5.0 % [facility] DEPARTMENT OF PATHOLOGY AND GENOMIC MEDICINE Basophils 0.7 0.0 - 1.0 % [facility] DEPARTMENT OF PATHOLOGY AND GENOMIC MEDICINE Immature granulocytes 0.6Comment: "Immature 0.0 - 1.0 % [facility] DEPARTMENT OF granulocytes" (promyelocytes, PATHOLOGY AND myelocytes, metamyelocytes) [facility] Specimen Blood Performing Organization Address City/State/Zipcode Phone Number [facility] DEPARTMENT OF [address] [place] [address] PATHOLOGY AND GENOMIC MEDICINE * Basic metabolic panel (10/30/2017 4:15 AM CDT) Only the most recent of 19 results within the time period is included. Sodium 134 (L) 135 - 148 mEq/L [facility] DEPARTMENT OF PATHOLOGY AND GENOMIC MEDICINE Potassium 5.2 (H) 3.5 - 5.0 mEq/L [facility] DEPARTMENT OF PATHOLOGY AND GENOMIC MEDICINE Chloride 102 98 - 112 mEq/L [facility] DEPARTMENT OF PATHOLOGY AND GENOMIC MEDICINE CO2 19 (L) 24 - 31 mEq/L [facility] DEPARTMENT OF PATHOLOGY AND GENOMIC MEDICINE Anion gap 13@ANIO 7 - 15 mEq/L [facility] DEPARTMENT OF PATHOLOGY AND GENOMIC MEDICINE BUN 14 8 - 23 mg/dL [facility] DEPARTMENT OF PATHOLOGY AND GENOMIC MEDICINE Creatinine 0.8 0.5 - 0.9 mg/dL [facility] DEPARTMENT OF PATHOLOGY AND GENOMIC MEDICINE Glucose 60 (L) 65 - 99 mg/dL [facility] DEPARTMENT OF PATHOLOGY AND GENOMIC MEDICINE Calcium 8.1 (L) 8.8 - 10.2 mg/dL [facility] DEPARTMENT OF PATHOLOGY AND GENOMIC MEDICINE Specimen Plasma specimen Performing Organization Address City/[facility] [place] [facility] [place] [address] PATHOLOGY AND [facility] * Hemoglobin & hematocrit (10/29/2017 4:03 PM CDT) Only the most recent of 6 results within the time period is included. HGB 9.8 (L) 12.0 - 16.0 g/dL [facility] DEPARTMENT OF PATHOLOGY AND GENOMIC MEDICINE HCT 29.8 (L) 37.0 - 47.0 % [facility] DEPARTMENT OF PATHOLOGY AND GENOMIC MEDICINE Specimen Blood Performing Organization Address City/[facility] Centercode Phone Number [place] [phone] PATHOLOGY [facility] * ECG 12 lead (10/29/2017 1:48 AM CDT) Only the most recent of 2 results within the time period is included. Ventricular rate 67 [facility] MUSE Atrial rate 67 [facility] MUSE QRSD interval 80 [facility] MUSE QT interval 418 [facility] MUSE QTC interval 441 [facility] MUSE QRS axis 1 15 [facility] MUSE T wave axis 33 [facility] MUSE EKG impression Undetermined rhythm-Otherwise [facility] MUSE normal ECG-In automated comparison with ECG of 18-SEP-2017 20:46,-Current undetermined rhythm precludes rhythm comparison, needs review- Performing Organization Address City/[facility] Centercode Phone Number [address] [address] * CRITICAL CARE (10/29/2017 12:50 AM CDT) Narrative Performed At Yehuda Contreras MD 10/30/20178:50 AM Critical Care Performed by: YEHUDA CONTRERAS Authorized by: YEHUDA CONTRERAS Critical care provider statement: Critical care time (minutes):35 Critical care time was exclusive of:Separately billable procedures and treating other patients and teaching time Critical care was necessary to treat or prevent imminent or life-threatening deterioration of the following conditions:Hepatic failure (gi bleed) Critical care was time spent personally by me on the following activities:Blood draw for specimens, development of treatment plan with patient or surrogate, discussions with consultants, discussions with primary provider, evaluation of patient's response to treatment, examination of patient, interpretation of cardiac output measurements, review of old charts, re-evaluation of patient's condition, pulse oximetry, ordering and review of radiographic studies, ordering and review of laboratory studies and ordering and performing treatments and interventions Héctor 'yes' if you are taking over critical care for this patient from another provider.: no * Partial thromboplastin time, activated (10/28/2017 11:42 PM CDT) Only the most recent of 4 results within the time period is included. PTT 45.6 (H) 23.0 - 36.0 sec [facility] DEPARTMENT OF Comment: PATHOLOGY AND PTT therapeutic range for [employer] [facility] unfractionated heparin is 61.0-112.0 seconds which corresponds to Anti-Xa 0.3-0.7 U/ml. Specimen Blood Performing Organization Address City/[facility] Centercode Phone Number [facility] DEPARTMENT OF [address] [place] [address] PATHOLOGY AND [facility] * Prothrombin time with INR (10/28/2017 11:42 PM CDT) Only the most recent of 9 results within the time period is included. Prothrombin time 14.0 12.0 - 15.0 sec [facility] DEPARTMENT OF PATHOLOGY AND GENOMIC MEDICINE INR 1.1 [facility] DEPARTMENT OF Comment: PATHOLOGY AND The International Normalized GENOMIC MEDICINE Ratio (INR) is a therapeutic monitoring tool for patients who are stable on oral anticoagulant therapy. An INR of 2.0-3.0 is suggested for deep vein thrombosis/pulmonary embolism. Specimen Blood Performing Organization Address City/[facility]/Zipcode Phone Number [facility] [place] [address] PATHOLOGY AND GENOMIC MEDICINE * Prepare RBC, 2 Units (10/28/2017 11:42 PM CDT) Only the most recent of 5 results within the time period is included. Product name Red Blood Cells -1, Leukored [facility] DEPARTMENT OF PATHOLOGY AND GENOMIC MEDICINE Unit number [id number] [facility] DEPARTMENT OF PATHOLOGY AND GENOMIC MEDICINE Product code [id number] [facility] DEPARTMENT OF PATHOLOGY AND GENOMIC MEDICINE Dispense status Transfused [facility] DEPARTMENT OF PATHOLOGY AND GENOMIC MEDICINE Blood expiration date [facility] DEPARTMENT OF PATHOLOGY AND GENOMIC MEDICINE Blood type code 6200 [facility] DEPARTMENT OF PATHOLOGY AND GENOMIC MEDICINE Blood type A POSITIVE [facility] DEPARTMENT OF PATHOLOGY AND GENOMIC MEDICINE Product name Red Blood Cells -1, Leukored [facility] DEPARTMENT OF PATHOLOGY AND GENOMIC MEDICINE Unit number [id number] [facility] DEPARTMENT OF PATHOLOGY AND GENOMIC MEDICINE Product code [id number] [facility] DEPARTMENT OF PATHOLOGY AND GENOMIC MEDICINE Dispense status Transfused [facility] DEPARTMENT OF PATHOLOGY AND GENOMIC MEDICINE Blood expiration date [facility] DEPARTMENT OF PATHOLOGY AND GENOMIC MEDICINE Blood type code 6200 [facility] DEPARTMENT OF PATHOLOGY AND GENOMIC MEDICINE Blood type A POSITIVE [facility] DEPARTMENT OF PATHOLOGY AND GENOMIC MEDICINE Performing Organization Address [facility] Phone Number [facility] [place] [address] PATHOLOGY AND GENOMIC MEDICINE * Type and screen (10/28/2017 11:42 PM CDT) Only the most recent of 5 results within the time period is included. ABO grouping A [facility] DEPARTMENT OF PATHOLOGY AND GENOMIC MEDICINE Rh type POS [facility] DEPARTMENT OF PATHOLOGY AND GENOMIC MEDICINE Antibody screen (gel) NEG [facility] DEPARTMENT OF PATHOLOGY AND GENOMIC MEDICINE Specimen Blood Performing Organization Address City/[facility]/Zipcode Phone Number [facility] [place] [address] PATHOLOGY AND GENOMIC MEDICINE * Lipase level (10/28/2017 11:42 PM CDT) Lipase 60 13 - 60 U/L [facility] DEPARTMENT OF PATHOLOGY AND GENOMIC MEDICINE Specimen Plasma specimen Performing Organization Address City/[facility]/Zipcode Phone Number [facility] [place] [address] PATHOLOGY AND GENOMIC MEDICINE * Comprehensive metabolic panel (10/28/2017 11:42 PM CDT) Only the most recent of 5 results within the time period is included. Sodium 133 (L) 135 - 148 mEq/L [facility] DEPARTMENT OF PATHOLOGY AND GENOMIC MEDICINE Potassium 4.7 3.5 - 5.0 mEq/L [facility] DEPARTMENT OF PATHOLOGY AND GENOMIC MEDICINE Chloride 99 98 - 112 mEq/L [facility] DEPARTMENT OF PATHOLOGY AND GENOMIC MEDICINE CO2 23 (L) 24 - 31 mEq/L [facility] DEPARTMENT OF PATHOLOGY AND GENOMIC MEDICINE Anion gap 11@ANIO 7 - 15 mEq/L [facility] DEPARTMENT OF PATHOLOGY AND GENOMIC MEDICINE BUN 17 8 - 23 mg/dL [facility] DEPARTMENT OF PATHOLOGY AND GENOMIC MEDICINE Creatinine 0.9 0.5 - 0.9 mg/dL [facility] DEPARTMENT OF PATHOLOGY AND GENOMIC MEDICINE Glucose 270 (H) 65 - 99 mg/dL [facility] DEPARTMENT OF PATHOLOGY AND GENOMIC MEDICINE Calcium 8.7 (L) 8.8 - 10.2 mg/dL [facility] DEPARTMENT OF PATHOLOGY AND GENOMIC MEDICINE Protein 7.1 6.3 - 8.3 g/dL [facility] DEPARTMENT OF Comment: PATHOLOGY AND GENOMIC MEDICINE 4.6-7.0 g/dL 1 week 4.4-7.6 g/dL 7 months-1year 5.1-7.3 g/dL 1-2 years5.6-7 .5 g/dL >3 years6.0-8 .0 g/dL 18-150 6.3-8.3 g/dL Albumin 2.7 (L) 3.5 - 5.0 g/dL [facility] DEPARTMENT OF PATHOLOGY AND GENOMIC MEDICINE A/G ratio 0.6 (L) 0.7 - 3.8 [facility] DEPARTMENT OF PATHOLOGY AND GENOMIC MEDICINE Alkaline phosphatase 145 (H) 35 - 104 U/L [facility] DEPARTMENT OF PATHOLOGY AND GENOMIC MEDICINE AST 71 (H) 10 - 35 U/L [facility] DEPARTMENT OF PATHOLOGY AND GENOMIC MEDICINE ALT 48 5 - 50 U/L [facility] DEPARTMENT OF PATHOLOGY AND GENOMIC MEDICINE Total bilirubin 0.3 0.0 - 1.2 mg/dL [facility] DEPARTMENT OF PATHOLOGY AND GENOMIC MEDICINE Specimen Plasma specimen Performing Organization Address City/State/Zipcode Phone Number [facility] DEPARTMENT OF [address] [place] [address] PATHOLOGY AND GENOMIC MEDICINE * CBC hemogram (10/06/2017 4:30 AM CDT) Only the most recent of 2 results within the time period is included. WBC 5.25 4.50 - 11.00 k/uL [facility] DEPARTMENT OF PATHOLOGY AND GENOMIC MEDICINE RBC 2.31 (L) 4.20 - 5.50 m/uL [facility] DEPARTMENT OF PATHOLOGY AND GENOMIC MEDICINE HGB 7.1 (L) 12.0 - 16.0 g/dL [facility] DEPARTMENT OF PATHOLOGY AND GENOMIC MEDICINE HCT 22.5 (L) 37.0 - 47.0 % [facility] DEPARTMENT OF PATHOLOGY AND GENOMIC MEDICINE MCV 97.4 82.0 - 100.0 fL [facility] DEPARTMENT OF PATHOLOGY AND GENOMIC MEDICINE MCH 30.7 27.0 - 34.0 pg [facility] DEPARTMENT OF PATHOLOGY AND GENOMIC MEDICINE MCHC 31.6 31.0 - 37.0 g/dL [facility] DEPARTMENT OF PATHOLOGY AND GENOMIC MEDICINE RDW - SD 65.1 (H) 37.0 - 55.0 fL [facility] DEPARTMENT OF PATHOLOGY AND GENOMIC MEDICINE MPV 10.3 8.8 - 13.2 fL [facility] DEPARTMENT OF PATHOLOGY AND GENOMIC MEDICINE Platelet count 183 150 - 400 k/uL [facility] DEPARTMENT OF PATHOLOGY AND GENOMIC MEDICINE Nucleated RBC 0.00 /100 WBC [facility] DEPARTMENT OF PATHOLOGY AND GENOMIC MEDICINE Performing Organization Address City/State/Zipcode Phone Number [facility] DEPARTMENT OF [address] [place] [address] PATHOLOGY AND GENOMIC MEDICINE * XR Foot 3+ Vw Right (10/05/2017 8:52 PM CDT) Only the most recent of 2 results within the time period is included. Narrative Performed At EXAMINATION:XR FOOT 3VW RIGHT RADIANT CLINICAL HISTORY:status-post amputation TECHNIQUE: 3 views of the right foot obtained. COMPARISON:09/18/2017 IMPRESSION: Interval amputation of the second toe through the PIP joint. Dressing material is noted at the stump. The remnant bones appear intact without evidence of osteolysis to indicate osteomyelitis. Mild calcaneal spurring. No acute fracture or dislocation identified. [facility]-[id number] Procedure Note Hm Interface, Radiology Results Incoming - 10/05/2017 9:30 PM CDT EXAMINATION: XR FOOT 3 VW RIGHT CLINICAL HISTORY: status-post amputation TECHNIQUE: 3 views of the right foot obtained. COMPARISON: 09/18/2017 IMPRESSION: Interval amputation of the second toe through the PIP joint. Dressing material is noted at the stump. The remnant bones appear intact without evidence of osteolysis to indicate osteomyelitis. Mild calcaneal spurring. No acute fracture or dislocation identified. [facility]-[id number] Performing Organization Address City/[facility] [place] [facility] Cent[facility]ode Phone Number [facility] [address] [place] [address] * Surgical pathology request (10/05/2017 4:46 PM CDT) [facility] DEPARTMENT OF PATHOLOGY AND GENOMIC MEDICINE Surgical pathology report See link below for PDF Lab [facility] DEPARTMENT OF Report PATHOLOGY AND GENOMIC MEDICINE Result status This is Final Report to [facility] DEPARTMENT OF [id number] PATHOLOGY AND GENOMIC MEDICINE Performing Organization Address [facility]ode Phone Number [facility] DEPARTMENT OF [address] [place] [address] PATHOLOGY AND GENOMIC MEDICINE * AFB culture (10/05/2017 4:11 PM CDT) Only the most recent of 3 results within the time period is included. AFB culture isolate No growth after 6 weeks of [facility] DEPARTMENT OF incubation. PATHOLOGY AND Comment: GENOMIC MEDICINE Specimen Information Specimen Source: Bone Specimen Site: Right foot second toe site B Specimen Bone - Toe, right Performing Organization Address [facility] Phone Number [facility] DEPARTMENT OF [address] [place] [address] PATHOLOGY AND GENOMIC MEDICINE * Aerobic culture (10/05/2017 4:11 PM CDT) Only the most recent of 3 results within the time period is included. Aerobic culture isolate No growth after 3 days. [facility] DEPARTMENT OF Comment: PATHOLOGY AND Specimen Information GENOMIC MEDICINE Specimen Source: Bone Specimen Site: Right foot second toe site B Specimen Bone - Toe, right Performing Organization Address [facility] Phone Number [facility] DEPARTMENT OF [address] [place] [address] PATHOLOGY AND GENOMIC MEDICINE * Fungus culture (10/05/2017 4:11 PM CDT) Only the most recent of 3 results within the time period is included. Fungus culture isolate No growth after 4 weeks of [facility] DEPARTMENT OF incubation. PATHOLOGY AND Comment: GENOMIC MEDICINE Specimen Information Specimen Source: Bone Specimen Site: Right foot second toe site B Specimen Bone - Toe, right Performing Organization Address [facility]ode Phone Number [facility] DEPARTMENT OF [address] [place] [address] PATHOLOGY AND GENOMIC MEDICINE * Anaerobic culture (10/05/2017 4:11 PM CDT) Only the most recent of 3 results within the time period is included. Anaerobic culture isolate No anaerobic organisms [facility] DEPARTMENT OF isolated. PATHOLOGY AND Comment: GENOMIC MEDICINE Specimen Information Specimen Source: Bone Specimen Site: Right foot second toe site B Specimen Bone - Toe, right Performing Organization Address [facility]ode Phone Number [facility] DEPARTMENT OF [address] [place] [address] PATHOLOGY AND GENOMIC MEDICINE * Fungus smear (10/05/2017 4:02 PM CDT) Only the most recent of 2 results within the time period is included. Fungus smear No fungi observed. [facility] DEPARTMENT OF Comment: PATHOLOGY AND Specimen Information GENOMIC MEDICINE Specimen Source: Tissue Specimen Site: Second toe from right foot site A Specimen Tissue Performing Organization Address [facility] [facility] Phone Number [facility] [place] [address] PATHOLOGY AND GENOMIC MEDICINE * Gram stain (10/05/2017 4:02 PM CDT) Only the most recent of 3 results within the time period is included. Gram stain isolate No WBC's or organisms seen. [facility] DEPARTMENT OF Comment: PATHOLOGY AND Specimen Information GENOMIC MEDICINE Specimen Source: Tissue Specimen Site: Second toe from right foot site A Specimen Tissue Performing Organization Address [facility] Phone Number [facility] DEPARTMENT OF [address] [place] [address] PATHOLOGY AND GENOMIC MEDICINE * AFB stain (10/05/2017 4:02 PM CDT) Only the most recent of 2 results within the time period is included. AFB stain No acid fast bacilli (AFB) [facility] DEPARTMENT OF seen. PATHOLOGY AND Comment: GENOMIC MEDICINE Specimen Information Specimen Source: Tissue Specimen Site: Second toe from right foot site A Specimen Tissue Performing Organization Address [facility] Phone Number [facility] DEPARTMENT OF [address] [place] [address] PATHOLOGY AND GENOMIC MEDICINE * Urinalysis screen and microscopy, with reflex to culture (10/05/2017 8:46 AM CDT) Specimen site Clean catch [facility] DEPARTMENT OF PATHOLOGY AND GENOMIC MEDICINE Color, UA Straw [facility] DEPARTMENT OF PATHOLOGY AND GENOMIC MEDICINE Appearance, UA Clear [facility] DEPARTMENT OF PATHOLOGY AND GENOMIC MEDICINE Specific gravity, UA 1.010 1.001 - 1.035 [facility] DEPARTMENT OF PATHOLOGY AND GENOMIC MEDICINE pH, UA 5.0 5.0 - 8.5 [facility] DEPARTMENT OF PATHOLOGY AND GENOMIC MEDICINE Protein, UA Negative Negative [facility] DEPARTMENT OF PATHOLOGY AND GENOMIC MEDICINE Glucose, UA Negative Negative [facility] DEPARTMENT OF PATHOLOGY AND GENOMIC MEDICINE Ketones, UA Negative Negative [facility] DEPARTMENT OF PATHOLOGY AND GENOMIC MEDICINE Bilirubin, UA Negative Negative [facility] DEPARTMENT OF PATHOLOGY AND GENOMIC MEDICINE Blood, UA Small (A) Negative [facility] DEPARTMENT OF PATHOLOGY AND GENOMIC MEDICINE Nitrite, UA Negative Negative [facility] DEPARTMENT OF PATHOLOGY AND GENOMIC MEDICINE Urobilinogen, UA <2.0 <2.0 [facility] DEPARTMENT OF PATHOLOGY AND GENOMIC MEDICINE Leukocyte esterase, UA Moderate (A) Negative [facility] DEPARTMENT OF PATHOLOGY AND GENOMIC MEDICINE Epithelial cells, UA 4 /HPF [facility] DEPARTMENT OF PATHOLOGY AND GENOMIC MEDICINE Round epithelial cells, <1 0 - 1 /HPF [facility] DEPARTMENT [facility] PATHOLOGY AND GENOMIC MEDICINE WBC, UA 8 (H) 0 - 4 /HPF [facility] DEPARTMENT OF PATHOLOGY AND GENOMIC MEDICINE RBC, UA 1 0 - 5 /HPF [facility] DEPARTMENT OF PATHOLOGY AND GENOMIC MEDICINE Bacteria, UA Few None seen [facility] DEPARTMENT OF PATHOLOGY AND GENOMIC MEDICINE Yeast, UA None seen [facility] DEPARTMENT OF PATHOLOGY AND GENOMIC MEDICINE Yeast with pseudohyphae, None seen [facility] DEPARTMENT OF UA PATHOLOGY AND GENOMIC MEDICINE Specimen Urine Performing Organization Address City/[facility]ode Phone Number [facility] [place] [address] PATHOLOGY AND GENOMIC MEDICINE * Urine culture (10/05/2017 8:46 AM CDT) Urine culture isolate Gram positive neno [facility] DEPARTMENT OF 10-1 cfu/ml PATHOLOGY AND (A) GENOMIC MEDICINE Comment: Specimen Information Specimen Source: Urine Specimen Site: Clean catch Specimen Urine Performing Organization Address City/[facility]/Zipcode Phone Number [facility] DEPARTMENT OF [address] [place] [address] PATHOLOGY AND GENOMIC MEDICINE * Smear review (10/05/2017 3:50 AM CDT) Only the most recent of 3 results within the time period is included. Platelet slide review Patricia adequate [facility] DEPARTMENT OF PATHOLOGY AND GENOMIC MEDICINE Anisocytosis Moderate [facility] DEPARTMENT OF PATHOLOGY AND GENOMIC MEDICINE Polychromasia Moderate [facility] DEPARTMENT OF PATHOLOGY AND GENOMIC MEDICINE Ovalocytes Moderate [facility] DEPARTMENT OF PATHOLOGY AND GENOMIC MEDICINE Giant platelets Occasional [facility] DEPARTMENT OF PATHOLOGY AND GENOMIC MEDICINE Performing Organization Address City/[facility] Phone Number [facility] [place] [address] PATHOLOGY AND GENOMIC MEDICINE * Magnesium level (10/04/2017 3:12 AM CDT) Only the most recent of 12 results within the time period is included. Magnesium 1.7 1.6 - 2.4 mg/dL [facility] DEPARTMENT OF PATHOLOGY AND GENOMIC MEDICINE Specimen Plasma specimen Performing Organization Address [facility] [place] [address] PATHOLOGY AND GENOMIC MEDICINE * Vitamin D 25 hydroxy level (10/03/2017 4:00 AM CDT) Vitamin D, 25-hydroxy 16.9 (L) 30.0 - 150.0 ng/mL [facility] DEPARTMENT OF Comment: PATHOLOGY AND This assay reports the sum of GENOMIC MEDICINE 25-hydroxy vitamin D3 and 25-hydroxy vitamin D2. Reference range: 0-17 years: Deficiency: less than 20ng/mL Optimum level: greater than or equal to 20 ng/mL. 18 years and older: Deficiency: less than 20ng/mL Insufficiency: 20-29 ng/mL Optimum Level: 30-80 ng/mL The assay reportable range is 3.4155.9 ng/mL. Levels higher than 150 ng/mL may be associated with toxicity. If toxicity is clinically suspected and the reported result is >155.9 ng/mL,contact lab for alternative methods to obtain a definitivelevel. If separate quantitation of 25-hydroxy vitamin D3 and 25-hydroxy vitamin D2 is needed, please contact lab for alternative methods. Specimen Blood Performing Organization Address [facility] [place] [address] PATHOLOGY AND GENOMIC MEDICINE * Hepatic function panel (10/01/2017 5:43 PM CDT) Only the most recent of 4 results within the time period is included. Albumin 2.6 (L) 3.5 - 5.0 g/dL [facility] DEPARTMENT OF PATHOLOGY AND GENOMIC MEDICINE Total bilirubin 0.9 0.0 - 1.2 mg/dL [facility] DEPARTMENT OF PATHOLOGY AND GENOMIC MEDICINE Bilirubin direct 0.4 (H) 0.0 - 0.3 mg/dL [facility] DEPARTMENT OF PATHOLOGY AND GENOMIC MEDICINE Alkaline phosphatase 107 (H) 35 - 104 U/L [facility] DEPARTMENT OF PATHOLOGY AND GENOMIC MEDICINE Protein 6.7 6.3 - 8.3 g/dL [facility] DEPARTMENT OF Comment: PATHOLOGY AND [place] GENOMIC MEDICINE 4.6-7.0 g/dL 1 week 4.4-7.6 g/dL 7 months-1year 5.1-7.3 g/dL 1-2 years5.6-7 .5 g/dL >3 years6.0-8 .0 g/dL 18-150 6.3-8.3 g/dL ALT 18 5 - 50 U/L [facility] DEPARTMENT OF PATHOLOGY AND GENOMIC MEDICINE AST 26 10 - 35 U/L [facility] DEPARTMENT OF PATHOLOGY AND GENOMIC MEDICINE Specimen Plasma specimen Performing Organization Address City/[facility]ode Phone Number [facility] DEPARTMENT OF [address] [place] [address] PATHOLOGY AND GENOMIC MEDICINE * Phosphorus level (10/01/2017 4:00 AM CDT) Only the most recent of 10 results within the time period is included. Phosphorus 4.5 2.4 - 4.5 mg/dL [facility] DEPARTMENT OF PATHOLOGY AND GENOMIC MEDICINE Specimen Plasma specimen Performing Organization Address [facility] Phone Number [facility] DEPARTMENT OF [address] [place] [address] PATHOLOGY AND GENOMIC MEDICINE * XR Chest 1 Vw Portable (09/30/2017 5:57 PM CDT) Only the most recent of 2 results within the time period is included. Narrative Performed At Examination: XR CHEST 1 VW PORTABLE [facility] Clinical history: Confirm new central line placement Comparison: September 21 Impression: 1. Right IJ line tip is in the SVC. There is no visible pneumothorax. 2. There is likely a small layering left pleural effusion. No significant pleural fluid is appreciated on the right. 3. Exam is otherwise similar. [facility]-[id number] Procedure Note Interface, Radiology Results Incoming - 09/30/2017 6:19 PM CDT Examination: XR CHEST 1 VW PORTABLE Clinical history: Confirm new central line placement Comparison: September 21 Impression: 1. Right IJ line tip is in the SVC. There is no visible pneumothorax. 2. There is likely a small layering left pleural effusion. No significant pleural fluid is appreciated on the right. 3. Exam is otherwise similar. [facility]-[id number] Performing Organization Address City/[facility] [place] [address] * OR FL < 1 Hour (09/30/2017 4:12 PM CDT) Narrative Performed At EXAMINATION:OR FL 1 HOUR HM [facility] C-arm fluoroscopy was requested in OR. LOCATION: [facility] OR 6 PROCEDURE: RIGHT FEMORAL POPLITEAL BYPASS W/ C-ARM START: 1555 END: 1612 FL TIME: 10sec DOSE (mGy): .7 TECH: DR IMPRESSION: Separate operative report will be issued by the physician performing the procedure. [id number] Procedure Note Interface, Radiology Results Incoming - 09/30/2017 8:32 PM CDT EXAMINATION: OR [place] 1 HOUR C-arm fluoroscopy was requested in OR. LOCATION: [facility] OR 6 PROCEDURE: RIGHT FEMORAL POPLITEAL BYPASS W/ C-ARM START: 1555 END: 1612 FL TIME: 10sec DOSE (mGy): .7 TECH: DR IMPRESSION: Separate operative report will be issued by the physician performing the procedure. [id number] Performing Organization Address City/[facility]/Zipcode Phone Number [facility] [address] [place] [address] * Potassium level (09/29/2017 3:29 PM CDT) Only the most recent of 2 results within the time period is included. Potassium 4.2 3.5 - 5.0 mEq/L [facility] DEPARTMENT OF PATHOLOGY AND GENOMIC MEDICINE Specimen Plasma specimen Performing Organization Address [facility] Centercode Phone Number [facility] DEPARTMENT OF [address] [place] [address] PATHOLOGY AND GENOMIC MEDICINE * Cv invasive peripheral vascular procedure (09/29/2017 9:02 AM CDT) Narrative Performed At Performing Organization Address City/[facility] Centercode Phone Number [facility] [address] [place] [address] * Copper, urine (09/28/2017 4:08 PM CDT) Collection length Random hr [facility] Comment: Corrected result; previously reported as RANDOM on 09/29/2017 at 10:57 by V/AUT Corrected result; previously reported as 00 on 09/28/2017 at 19:13 by V/AUT Total volume, urine Random mL [facility] Comment: Corrected result; previously reported as RANDOM on 09/29/2017 at 10:57 by V/AUT Corrected result; previously reported as 00 on 09/28/2017 at 19:13 by V/AUT Copper, urine ug/dL 2.4 0.3 - 3.2 ug/dL [facility] Comment: INTERPRETIVE INFORMATION: Copper, Urine Individuals with symptomatic Lazarus disease usually excrete more than 100 ug copper per day. Other conditions associated with elevated urine copper include cholestatic liver disease, proteinuria, some medications, and contaminated specimens. Although random specimens may contain diagnostic information, a 24-hour collection is a more consistent indicator of urine copper. Test developed and characteristics determined by [email or web address]. See Compliance Statement B: [employer]/ Copper, urine ug/g de alcoholizer 49.0 (H) 10.0 - 45.0 [facility] Creatinine, urine mg/dL 49 mg/dL [facility] Creatinine, urine mg/day Not Applicable 500 - 1400 mg/d [facility] Comment: Performed by [email or web address], [address] [place] [address] [email or web address] Elieser Ruby MD - Lab. Director Copper, urine ug/day Not Applicable 3.0 - 45.0 ug/d [facility] Specimen Urine Performing Organization Address City/State/Zipcode Phone Number [facility] [address] [place] [address] * NE Cardiac Shunt Evaluation (09/28/2017 10:54 AM CDT) Narrative Performed At NE CARDIAC SHUNT EVALUATION [facility] INDICATION:Dyspnea. COMPARISON:CT chest dated 09/27/2017. TECHNIQUE:Planar ventilation images were acquired after the inhalation of 15 mCi of Xe-133 gas. Planar perfusion images were acquired after the IV administration of 5 mCi of Tc-99m MAA.Shunt views of the head were obtained. FINDINGS:Ventilation images demonstrate decreased ventilation to the lung periphery and left lung base. Washout images demonstrate gas trapping in the left lung.Perfusion images demonstrate decreased perfusion to the lung periphery and left lung base, matching the ventilation images.No mismatched defects. Shunt views demonstrate no significant uptake. IMPRESSION: 1.Low probability for acute PE. 2.No definite evidence for chronic PE.Obstructive airspace disease is present in the left lung. 3.No evidence for significant right to left shunt. [facility]-[id number] Procedure Note Interface, Radiology Results Incoming - 09/28/2017 12:02 PM CDT NE CARDIAC SHUNT EVALUATION INDICATION: Dyspnea. COMPARISON: CT chest dated 09/27/2017. TECHNIQUE: Planar ventilation images were acquired after the inhalation of 15 mCi of Xe-133 gas. Planar perfusion images were acquired after the IV administration of 5 mCi of Tc-99m MAA. Shunt views of the head were obtained. FINDINGS: Ventilation images demonstrate decreased ventilation to the lung periphery and left lung base. Washout images demonstrate gas trapping in the left lung. Perfusion images demonstrate decreased perfusion to the lung periphery and left lung base, matching the ventilation images. No mismatched defects. Shunt views demonstrate no significant uptake. IMPRESSION: 1. Low probability for acute PE. 2. No definite evidence for chronic PE. Obstructive airspace disease is present in the left lung. 3. No evidence for significant right to left shunt. [facility]-[id number] Performing Organization Address City/State/Zipcode Phone Number [facility] [address] [place] [address] * NM Lung Ventilation Perfusion (09/28/2017 10:53 AM CDT) Narrative Performed At PROCEDURE:NM LUNG VENTILATION PERFUSION [facility] INDICATION:Dyspnea. COMPARISON:CT chest dated 09/27/2017. TECHNIQUE:Planar ventilation images were acquired after the inhalation of 15 mCi of Xe-133 gas. Planar perfusion images were acquired after the IV administration of 5 mCi of Tc-99m MAA.Shunt views of the head were obtained. FINDINGS:Ventilation images demonstrate decreased ventilation to the lung periphery and left lung base. Washout images demonstrate gas trapping in the left lung.Perfusion images demonstrate decreased perfusion to the lung periphery and left lung base, matching the ventilation images.No mismatched defects. Shunt views demonstrate no significant uptake. IMPRESSION: 1.Low probability for acute PE. 2.No definite evidence for chronic PE.Obstructive airspace disease is present in the left lung. 3.No evidence for significant right to left shunt. [facility]-[id number] Procedure Note Interface, Radiology Results [facility] - 09/28/2017 12:02 PM CDT PROCEDURE: NM LUNG VENTILATION PERFUSION INDICATION: Dyspnea. COMPARISON: CT chest dated 09/27/2017. TECHNIQUE: Planar ventilation images were acquired after the inhalation of 15 mCi of Xe-133 gas. Planar perfusion images were acquired after the IV administration of 5 mCi of Tc-99m MAA. Shunt views of the head were obtained. FINDINGS: Ventilation images demonstrate decreased ventilation to the lung periphery and left lung base. Washout images demonstrate gas trapping in the left lung. Perfusion images demonstrate decreased perfusion to the lung periphery and left lung base, matching the ventilation images. No mismatched defects. Shunt views demonstrate no significant uptake. IMPRESSION: 1. Low probability for acute PE. 2. No definite evidence for chronic PE. Obstructive airspace disease is present in the left lung. 3. No evidence for significant right to left shunt. [facility]-[id number] Performing Organization Address City/State/Zipcode Phone Number [facility] [address] [place] [address] * B natriuretic peptide (09/28/2017 4:30 AM CDT) BNP 215 (H) 0 - 100 pg/mL [facility] DEPARTMENT OF PATHOLOGY AND GENOMIC MEDICINE Specimen Blood Performing Organization Address [facility] Centercode Phone Number [facility] DEPARTMENT OF [address] [place] [address] PATHOLOGY AND GENOMIC MEDICINE * CT Chest Wo Contrast (09/27/2017 2:34 PM CDT) Narrative Performed At EXAMINATION: [facility] CT CHEST WO CONTRAST CLINICAL HISTORY: DYSPNEAON EXERTION, Shoulder painbursitis or tenosynovitis suspectedxray nondiagnostic, ILD protocol TECHNIQUE: Multiple axial images of the chest were obtained without intravenous contrast. The lack of intravenous contrast reduces the sensitivity of detecting solid organ disease and evaluating vasculature. Sagittal and coronal computerized reformatted images were also obtained. COMPARISON: None. IMPRESSION: Small to moderate left and trace right pleural fluid. Subtle perihilar groundglass and mild interlobular septal thickening within the bases suggest mild pulmonary and interstitial edema.. Calcified granulomata within the lungs. No pneumothorax. Visualized thyroid is unremarkable. Multiple lymph nodes are seen within the mediastinum, most of which are nonenlarged. Mildly prominent precarinal lymph node demonstrates a normal appearing fatty hilum. Mild cardiomegaly. Trace pericardial fluid. Thoracic aorta and main pulmonary artery demonstrate a normal caliber. Dense coronary artery calcifications. Moderate free fluid within the visualized upper abdomen. Clips near the GE junction. Calcified splenic and hepatic granulomata. Osseous degenerative changes including mild bilateral glenohumeral osteoarthrosis. 1.9 cm cm nodular opacity within the left breast soft tissues. Recommend mammographic correlation. [id number] Procedure Note Interface, Radiology Results Incoming - 09/27/2017 3:21 PM CDT EXAMINATION: CT CHEST WO CONTRAST CLINICAL HISTORY: DYSPNEA ON EXERTION, Shoulder pain bursitis or tenosynovitis suspected xray nondiagnostic, ILD protocol TECHNIQUE: Multiple axial images of the chest were obtained without intravenous contrast. The lack of intravenous contrast reduces the sensitivity of detecting solid organ disease and evaluating vasculature. Sagittal and coronal computerized reformatted images were also obtained. COMPARISON: None. IMPRESSION: Small to moderate left and trace right pleural fluid. Subtle perihilar groundglass and mild interlobular septal thickening within the bases suggest mild pulmonary and interstitial edema.. Calcified granulomata within the lungs. No pneumothorax. Visualized thyroid is unremarkable. Multiple lymph nodes are seen within the mediastinum, most of which are nonenlarged. Mildly prominent precarinal lymph node demonstrates a normal appearing fatty hilum. Mild cardiomegaly. Trace pericardial fluid. Thoracic aorta and main pulmonary artery demonstrate a normal caliber. Dense coronary artery calcifications. Moderate free fluid within the visualized upper abdomen. Clips near the GE junction. Calcified splenic and hepatic granulomata. Osseous degenerative changes including mild bilateral glenohumeral osteoarthrosis. 1.9 cm cm nodular opacity within the left breast soft tissues. Recommend mammographic correlation. [id number] Performing Organization Address City/[facility] [place] [address] * Ionized calcium (09/25/2017 5:28 AM CDT) Only the most recent of 5 results within the time period is included. pH 7.45 [facility] DEPARTMENT OF PATHOLOGY AND GENOMIC MEDICINE Ionized calcium 1.11 1.11 - 1.32 mmol/L [facility] DEPARTMENT OF PATHOLOGY AND GENOMIC MEDICINE Specimen Plasma specimen Performing Organization Address [facility]/[place] [address] PATHOLOGY AND GENOMIC MEDICINE * Arterial blood gas (09/25/2017 12:45 AM CDT) Only the most recent of 2 results within the time period is included. pH, arterial 7.41 7.35 - 7.45 [facility] DEPARTMENT OF PATHOLOGY AND GENOMIC MEDICINE pCO2, arterial 36 35 - 45 mmHg [facility] DEPARTMENT OF PATHOLOGY AND GENOMIC MEDICINE pO2, arterial 63 (L) 80 - 90 mmHg [facility] DEPARTMENT OF PATHOLOGY AND GENOMIC MEDICINE Bicarbonate, arterial 22.7 21.0 - 28.0 mmol/L [facility] DEPARTMENT OF PATHOLOGY AND GENOMIC MEDICINE Base excess, arterial -1 -2 - 2 mEq/L [facility] DEPARTMENT OF PATHOLOGY AND GENOMIC MEDICINE O2 saturation, arterial 95 95 - 100 % [facility] DEPARTMENT OF PATHOLOGY AND GENOMIC MEDICINE Specimen Blood Performing Organization Address City/[facility] Centercode Phone Number [facility] [place] [address] PATHOLOGY AND GENOMIC MEDICINE * Sedimentation rate (09/24/2017 7:08 AM CDT) Sedimentation rate 63 (H) 0 - 20 mm/hr [facility] DEPARTMENT OF PATHOLOGY AND GENOMIC MEDICINE Specimen Blood Performing Organization Address [facility] Phone Number [facility] [place] [address] PATHOLOGY AND GENOMIC MEDICINE * CRP high sensitivity (09/24/2017 7:08 AM CDT) CRP, high sensitivity 15.94 mg/L [facility] DEPARTMENT OF Comment: PATHOLOGY AND Please note this test is GENOMIC MEDICINE different from the C-Reactive Protein (CRP) assay. CRP is a nonspecific marker of inflammation and its levels rise in the presence of conditions such as infection and inflammatory disorders. Persistent low levels of CRP can be measured with a high-sensitivity assay (hsCRP) andare associated with increased risks for atherosclerotic diseases. High-Sensitivity CRP (hsCRP) results are used to assign risk for stroke, acute myocardial infarction and peripheral vascular disease as follows: Low risk: < 1.00 mg/L Average risk: 1.00 - 3.00 mg/L High risk: > 3.00 - 10.00 mg/L Indeterminate: > 10.00 mg/L * *May be indicative of another source of inflammation or infection Specimen Plasma specimen Performing Organization Address [facility] [facility] Phone Number [facility] [place] [address] PATHOLOGY AND GENOMIC MEDICINE * Pv duplex arterial lower extremity (09/23/2017 11:58 AM CDT) Only the most recent of 2 results within the time period is included. Narrative Performed At [facility] Vascular Ultrasound Laboratory Lower Extremity Arterial Duplex Report [address] [place] [address].Name:Jo VELA.ID:[id number] .Date: 09/23/2017 Refer.MD:TAMERA LOCO MD Exam Time: 11:25:00 AM Study Type:LE Arterial Height:63inWeight:158lb BSA: 1.75 m2 DOBAge:1950,66Y Sex: FEMALESonogrphr: Ky Carmichael, RN, RVS Pat. Stat.:Inpatient Room:[facility] TapeVol: PM, CPT - 4: 54252 Echo Event ID:[id number] Order ID:[id number] Reason for Study:Leg pain. history of diabetes, PAD. History / Clinical:DM, HTN, HLD, H/o Colon tumor, S/p resection Procedures:Colorflow, Grayscale/2D, Pulsed wave Doppler Race:C SUMMARY: DUPLEX SCAN OBSERVATIONS: LEFT: There are calcifications noted in the visualized arteries. Colorflow and Tri/Biphasic Doppler signals noted in the arteries. DOPPLER FINDINGS: ARTERYLOCATIONPSV (cm/sec) LEFTCommon Femoral Proximal-third 95 cm/sec Profunda Femoris Proximal-third 53 cm/sec Superficial Femoral Proximal-third 88cm/sec Mid-hixyu012 cm/sec Distal- rohno030 cm/sec PoplitealProximal-third 120 cm/sec Distal-third77 cm/sec Posterior tibial Proximal-third 81 cm/sec Mid-third99 cm/sec Distal-third86 cm/sec Peroneal Artery Proximal-third 77 cm/sec Mid- cm/sec Distal-third83 cm/sec Anterior Tibial Proximal-third 81 cm/sec Mid-third85 cm/sec Distal-third94 cm/sec ANKLE/BRACHIAL INDEX: RIGHTLEFT Brachial Artery Pressure 150 mmHgPICC mmHg DP84 [id number] PT96 bdCv392 mmHg GISELA DP0.560.95 GISELA PT0.641.07 TOE/BRACHIAL INDEX: Great Toe52 oqLw941 mmHg TBI0.35 0.81 PRELIMINARY FINDINGS: 1. Patent arteries of the left lower extremity. 2. 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 The left is in the normal range. 3. Toe/brachial index is in the Moderate range on the right, normal on the left. 4. See study done 09/22/17 for right leg results. PHYSICIAN INTERPRETATION: Arterial duplex examination ofleft lower extremity demonstrates no evidence of arterial occlusive disease. 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 The left is in the normal range. Toe/brachial index is in the Moderate range on the right, normal on the left. MEASUREMENTS: DOPPLER Left GRINDER TENDER prox GRINDER TENDER prox PSV94.7 cm/s GRINDER TENDER Left GRINDER TENDER Prox D60 deg Left Profunda Profunda PSV53.1 cm/s Profunda Left Profunda P60 deg Left SFA Dist SFA Dist PSV 114 cm/s SFA Left SFA Dist D60 degLeft SFA Mid Do60 deg Left SFA Mid SFA Mid XEE434 cm/s Left Pop Dist Pop Dist PSV76.6 cm/s Popliteal Left Popliteal 60 degLeft Popliteal 60 deg Left Pop Prox Pop Prox PSV 120 cm/s Left LIABILITY CLAIMS ADJUSTER Dist LIABILITY CLAIMS ADJUSTER Dist PSV86.3 cm/s Tibial Post Left Tibial Pos60 degLeft Tibial Pos60 deg Left Tibial Pos60 deg Left LIABILITY CLAIMS ADJUSTER Mid LIABILITY CLAIMS ADJUSTER Mid PSV 99.3 cm/s Left LIABILITY CLAIMS ADJUSTER Prox LIABILITY CLAIMS ADJUSTER Prox PSV81.4 cm/s Left Peroneal Dist Peroneal Dist P82.5 cm/s Peroneal Left Peroneal D60 degLeft Peroneal P60 deg Left Peroneal M60 deg Left Peroneal Mid Peroneal Mid PS 100 cm/s Left Peroneal Prox Peroneal Prox P77.7 cm/s Left ANGEL Dist ANGEL Dist PSV94.1 cm/s Tibial Art Left Tibial Art60 degLeft Tibial Art60 deg Left Tibial Art60 deg Left ANGEL Mid ANGEL Mid PSV 85.8 cm/s Left ANGEL Prox ANGEL Prox PSV80.9 cm/s Signed 09/23/2017 12:27 PM Case Ro MD, RPVI Procedure Note Interface, Radiology Results In - 09/23/2017 12:27 PM CDT Vascular Ultrasound Laboratory Lower Extremity Arterial Duplex Report [id number] [address], [place] [address] Pat.Name: NILSA VELA Pat.ID: [id number] .Date: 09/23/2017 Refer.MD: TAMERA LOCO MD Exam Time: 11:25:00 AM Study Type:LE Arterial Height: 63in Weight: 158lb BSA: 1.75 m2 Age: 9 1950,66Y Sex: FEMALE Sonogrphr: Ky Carmichael RN, RVS Pat. Stat.:[facility]patient [facility] Tape Vol: PM, CPT - 4: 96298 Echo Event ID:[id number] Order ID: [id number] Reason for Study:Leg pain. history of diabetes, PAD. History / Clinical:DM, HTN, HLD, H/o Colon tumor, S/p resection Procedures:Colorflow, Grayscale/2D, Pulsed wave Doppler Race: C SUMMARY: DUPLEX SCAN OBSERVATIONS: LEFT: There are calcifications noted in the visualized arteries. Colorflow and Tri/Biphasic Doppler signals noted in the arteries. DOPPLER FINDINGS: ARTERY LOCATION PSV (cm/sec) LEFT Common Femoral Proximal-third 95 cm/sec Profunda Femoris Proximal-third 53 cm/sec Superficial Femoral Proximal-third 88cm/sec Mid-third 120 cm/sec Distal- third 114 cm/sec Popliteal Proximal-third 120 cm/sec Distal-third 77 cm/sec Posterior tibial Proximal-third 81 cm/sec Mid-third 99 cm/sec Distal-third 86 cm/sec Peroneal Artery Proximal-third 77 cm/sec Mid-third 100 cm/sec Distal-third 83 cm/sec Anterior Tibial Proximal-third 81 cm/sec Mid-third 85 cm/sec Distal-third 94 cm/sec ANKLE/BRACHIAL INDEX: RIGHT LEFT Brachial Artery Pressure 150 mmHg PICC mmHg DP 84 mmHg 142mmHg PT 96 mmHg 161 mmHg GISELA DP 0.56 0.95 GISELA PT 0.64 1.07 TOE/BRACHIAL INDEX: Great Toe 52 mmHg 122 mmHg TBI 0.35 0.81 PRELIMINARY FINDINGS: 1. Patent arteries of the left lower extremity. 2. 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 The left is in the normal range. 3. Toe/brachial index is in the Moderate range on the right, normal on the left. 4. See study done 09/22/17 for right leg results. PHYSICIAN INTERPRETATION: Arterial duplex examination of left lower extremity demonstrates no evidence of arterial occlusive disease. 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 The left is in the normal range. Toe/brachial index is in the Moderate range on the right, normal on the left. MEASUREMENTS: DOPPLER Left GRINDER TENDER prox GRINDER TENDER prox PSV 94.7 cm/s GRINDER TENDER Left GRINDER TENDER Prox D 60 deg Left Profunda Profunda PSV 53.1 cm/s Profunda Left Profunda P 60 deg Left SFA Dist SFA Dist PSV 114 cm/s SFA Left SFA Dist D 60 deg Left SFA Mid Do 60 deg Left SFA Mid SFA Mid PSV 120 cm/s Left Pop Dist Pop Dist PSV 76.6 cm/s Popliteal Left Popliteal 60 deg Left Popliteal 60 deg Left Pop Prox Pop Prox PSV 120 cm/s Left LIABILITY CLAIMS ADJUSTER Dist LIABILITY CLAIMS ADJUSTER Dist PSV 86.3 cm/s Tibial Post Left Tibial Pos 60 deg Left Tibial Pos 60 deg Left Tibial Pos 60 deg Left LIABILITY CLAIMS ADJUSTER Mid LIABILITY CLAIMS ADJUSTER Mid PSV 99.3 cm/s Left LIABILITY CLAIMS ADJUSTER Prox LIABILITY CLAIMS ADJUSTER Prox PSV 81.4 cm/s Left Peroneal Dist Peroneal Dist P 82.5 cm/s Peroneal Left Peroneal D 60 deg Left Peroneal P 60 deg Left Peroneal M 60 deg Left Peroneal Mid Peroneal Mid PS 100 cm/s Left Peroneal Prox Peroneal Prox P 77.7 cm/s Left ANGEL Dist ANGEL Dist PSV 94.1 cm/s Tibial Art Left Tibial Art 60 deg Left Tibial Art 60 deg Left Tibial Art 60 deg Left ANGEL Mid ANGEL Mid PSV 85.8 cm/s Left ANGEL Prox ANGEL Prox PSV 80.9 cm/s Signed 09/23/2017 12:27 PM Case Ro MD, RPVI Performing Organization Address City/State/Zipcode Phone Number [facility] [address] [place] [address] * Liver-kidney microsome Ab, IgG (09/21/2017 4:45 PM CDT) Liver-kidney microsome <1:20 <1:20 [facility] Ab, IgG Comment: INTERPRETIVE INFORMATION:Chujy-Zrwqva-B icrosome Abs, IgG Liver-Kidney Microsome IgG antibody (anti-LKM), as detected by indirect immunofluorescent antibody (IFA) techniques, may be observed in patients with autoimmune hepatitis type 2 (AIH-2), AIH-2 associated with autoimmune polyendocrinopathy-candidiasis -ectodermal dystrophy (APECED), viral hepatitis C or D, and some forms of drug-induced hepatitis. This IFA does not differentiate among the four types of LKM antibodies (LKM-1, LKM-2, LKM-3, and a fourth type that recognizes CY and CY antigens). Of these, anti-LKM-1 (cytochrome [id number]) IgG antibodies are considered specific for AIH-2. Test developed and characteristics determined by [email or web address]. See Compliance Statement D: [employer]/ Performed by [email or web address], [address] [place], [place] [id number] [email or web address], Elieser Ruby MD - Lab. Director Specimen Serum Performing Organization Address [facility]/Zipcode Phone Number [email or web address] [address] [place] [address] * MRI Foot Wo Contrast Right (09/21/2017 2:20 PM CDT) Narrative Performed At [facility] EXAMINATION:MRI FOOT WO CONTRAST RIGHT INDICATION:Osteomyelitis. COMPARISON: Right foot radiographs dated 09/18/2017 TECHNIQUE: Multiplanar multisequence MRI of the right foot was acquired without intravenous contrast. IMPRESSION: 1.Active osteomyelitis of the distal phalanx of the second ray with loss of normal marrow signal, marrow edema, and osteolysis of the tuft. There is no abnormal marrow signal involving the middle phalanx. 2.No findings to suggest osteomyelitis of the first, third, fourth, or fifth rays. 3.There is ulceration of the tip of the second ray with surrounding cellulitis but no drainable fluid collection to suggest an abscess. 4.Edema, atrophy, and fatty replacement of the intrinsic musculature of the foot is consistent with ongoing denervation in the setting of diabetes. 5.Other findings: Hallux metatarsophalangeal and hallux sesamoid osteoarthrosis with mild edema of the tibial hallux sesamoid and cystic change in the plantar aspect of the metatarsal head. There is a small hallux metatarsophalangeal joint effusion. There is a small joint effusion of the hallux interphalangeal joint. Intermetatarsal bursitis of the second and third web spaces. Flexor and extensor tendons appear intact. Procedure Note Interface, Radiology Results Incoming - 09/21/2017 2:49 PM CDT EXAMINATION: MRI FOOT WO CONTRAST RIGHT INDICATION: Osteomyelitis. COMPARISON: Right foot radiographs dated 09/18/2017 TECHNIQUE: Multiplanar multisequence MRI of the right foot was acquired without intravenous contrast. IMPRESSION: 1. Active osteomyelitis of the distal phalanx of the second ray with loss of normal marrow signal, marrow edema, and osteolysis of the tuft. There is no abnormal marrow signal involving the middle phalanx. 2. No findings to suggest osteomyelitis of the first, third, fourth, or fifth rays. 3. There is ulceration of the tip of the second ray with surrounding cellulitis but no drainable fluid collection to suggest an abscess. 4. Edema, atrophy, and fatty replacement of the intrinsic musculature of the foot is consistent with ongoing denervation in the setting of diabetes. 5. Other findings: Hallux metatarsophalangeal and hallux sesamoid osteoarthrosis with mild edema of the tibial hallux sesamoid and cystic change in the plantar aspect of the metatarsal head. There is a small hallux metatarsophalangeal joint effusion. There is a small joint effusion of the hallux interphalangeal joint. Intermetatarsal bursitis of the second and third web spaces. Flexor and extensor tendons appear intact. Performing Organization Address City/State/Zipcode Phone Number [facility] [address] [place] [address] * CT Abdomen WWO Contrast, Pelvis W Contrast (09/21/2017 1:22 PM CDT) Narrative Performed At EXAMINATION:CT ABDOMEN WWO CONTRAST PELVIS W CONTR[facility] CLINICAL HISTORY:History ofcolon cancers p resection. Liver cirrhosis. TECHNIQUE: Noncontrast images of the abdomen were obtained. Subsequently, axial images of the abdomen and pelvis were obtained following intravenous administration of iodinated contrast. Abdomen was acquired using multiphasic liver protocol. Sagittal and coronal computerized reformatted images were also obtained. COMPARISON:Ultrasound September 19, 2017 FINDINGS: The liver cirrhotic. No focal hepatic mass. Portal vein is patent. Spleen is mildly enlarged. Large gastric varices and splenorenal shunt are seen. Gallbladder is absent. No significant biliary dilatation. Atrophic pancreas. Kidneys and adrenal glands are unremarkable. There is small-moderate ascites. Status post Cathy procedure with left lower quadrant colostomy. No bowel obstruction. Parastomal hernia contains ascites and small bowel. Prominent rectus diastases. Markedly atrophic uterus versus supracervical hysterectomy. No adnexal mass. Severe aortoiliac calcifications. No aneurysm. No destructive osseous lesion. Old fracture deformities of left pubic rami. Trace pleural fluid bilaterally. IMPRESSION: Liver cirrhosis and portal hypertension. No suspicious mass. Parastomal hernia with ascites and small bowel. [facility]-[id number] Procedure Note [facility], Radiology Results Incoming - 09/21/2017 1:49 PM CDT EXAMINATION: CT ABDOMEN WWO CONTRAST PELVIS W CONTRAST CLINICAL HISTORY: History of colon cancer s p resection. Liver cirrhosis. TECHNIQUE: Noncontrast images of the abdomen were obtained. Subsequently, axial images of the abdomen and pelvis were obtained following intravenous administration of iodinated contrast. Abdomen was acquired using multiphasic liver protocol. Sagittal and coronal computerized reformatted images were also obtained. COMPARISON: Ultrasound September 19, 2017 FINDINGS: The liver cirrhotic. No focal hepatic mass. Portal vein is patent. Spleen is mildly enlarged. Large gastric varices and splenorenal shunt are seen. Gallbladder is absent. No significant biliary dilatation. Atrophic pancreas. Kidneys and adrenal glands are unremarkable. There is small-moderate ascites. Status post Cathy procedure with left lower quadrant colostomy. No bowel obstruction. Parastomal hernia contains ascites and small bowel. Prominent rectus diastases. Markedly atrophic uterus versus supracervical hysterectomy. No adnexal mass. Severe aortoiliac calcifications. No aneurysm. No destructive osseous lesion. Old fracture deformities of left pubic rami. Trace pleural fluid bilaterally. IMPRESSION: Liver cirrhosis and portal hypertension. No suspicious mass. Parastomal hernia with ascites and small bowel. [facility]-[id number] Performing Organization Address City/[facility]/[place] [address] * Alpha-1 antitrypsin level (09/21/2017 10:26 AM CDT) Alpha-1 antitrypsin 172 90 - 200 mg/dL [facility] DEPARTMENT OF PATHOLOGY AND GENOMIC MEDICINE Specimen Plasma specimen Performing Organization Address [facility] [place] [address] PATHOLOGY AND GENOMIC MEDICINE * Ceruloplasmin level (09/21/2017 10:26 AM CDT) Ceruloplasmin 35 16 - 45 mg/dL [facility] DEPARTMENT OF PATHOLOGY AND GENOMIC MEDICINE Specimen Plasma specimen Performing Organization Address [facility] [place] [address] PATHOLOGY AND GENOMIC MEDICINE * Alpha fetoprotein (09/21/2017 10:26 AM CDT) Alpha fetoprotein 2.1 0.0 - 8.3 ng/mL [facility] DEPARTMENT OF Comment: PATHOLOGY AND The Tat[employer]ana 8000 AFP immunoassay [facility] was used. Results obtained with different assay methods or kits should not be used interchangeably and may be different. Specimen Serum Performing Organization Address [facility] [place] [address] PATHOLOGY AND GENOMIC MEDICINE * Immunoglobulin A (09/21/2017 10:26 AM CDT) IgA 253 70 - 400 mg/dL [facility] DEPARTMENT OF PATHOLOGY AND GENOMIC MEDICINE Specimen Plasma specimen Performing Organization Address [facility] [place] [address] PATHOLOGY AND [facility] MEDICINE * Immunoglobulin M (09/21/2017 10:26 AM CDT) IgM 275 (H) 33 - 255 mg/dL [facility] DEPARTMENT OF PATHOLOGY AND GENOMIC MEDICINE Specimen Plasma specimen Performing Organization Address [facility] [place] [address] PATHOLOGY AND GENOMIC MEDICINE * Immunoglobulin G (09/21/2017 10:26 AM CDT) IgG 1,283 700 - 1,600 mg/dL [facility] DEPARTMENT OF PATHOLOGY AND GENOMIC MEDICINE Specimen Plasma specimen Performing Organization Address City/[facility] [place] [address] PATHOLOGY AND GENOMIC MEDICINE * Ferritin level (09/21/2017 10:26 AM CDT) Ferritin level 93 13 - 150 ng/mL [facility] DEPARTMENT OF PATHOLOGY AND GENOMIC MEDICINE Specimen Plasma specimen Performing Organization Address [facility] [place] [address] PATHOLOGY AND GENOMIC MEDICINE * Carcinoembryonic antigen (CEA) (09/21/2017 10:26 AM CDT) CEA 1.8 0.0 - 3.8 ng/mL [facility] DEPARTMENT OF Comment: PATHOLOGY AND Reference range for heavy GENOMIC MEDICINE smokers:0.0 - 5.5 ng/mL The [employer] Tatyana 8000 CEA immunoassay was used. Results obtained with different assay methods or kits should not be used interchangeably and may be different. Specimen Serum Performing Organization Address [facility] [place] [address] PATHOLOGY AND GENOMIC MEDICINE * Lipid panel (09/21/2017 10:26 AM CDT) Cholesterol 103 <200 mg/dL [facility] DEPARTMENT OF PATHOLOGY AND GENOMIC MEDICINE Triglycerides 69 <150 mg/dL [facility] DEPARTMENT OF PATHOLOGY AND GENOMIC MEDICINE HDL cholesterol 48 >40 mg/dL [facility] DEPARTMENT OF PATHOLOGY AND GENOMIC MEDICINE LDL cholesterol 44Comment: Result obtained by <100 mg/dL [facility] DEPARTMENT OF direct LDL measurement PATHOLOGY AND GENOMIC MEDICINE Lipid panel SeeBelow [facility] DEPARTMENT OF interpretation Comment: PATHOLOGY AND Total Cholesterol GENOMIC MEDICINE (mg/dL) <200 Desirable 200-239Borderline -high >=240High Triglycerides (mg/dL) <150 Normal 150-199Borderline -high 200-499High >=500Very high HDL Cholesterol (mg/dL) <40Low (male) <40Low (female) LDL Cholesterol (mg/dL) <100 Optimal 100-129Near or above optimal 130-159Borderline -high 160-189High >=190Very high Risk Catergories that modify LDL goals. Risk Catergories LDL goal (mg/dL) CHD and CHD risk equivalent<100 (10-year risk >20%) Multiple (2+) risk factors <130 (10-year risk=<20%) 0-1 risk factors <160 (<10-year risk) Defining levels of lipids in metabolic syndrome Triglycerides >=150 mg/dL HDL Cholesterol Men <40 mg/dL Women <40 mg/dL Non-HDL cholesterol is a second target for therapy in persons with high triglycerides (>=200 mg/dL) Specimen Plasma specimen Performing Organization Address City/State/Zipcode Phone Number [facility] DEPARTMENT OF [address] [place] [address] PATHOLOGY AND GENOMIC MEDICINE * Echocardiogram complete w contrast and 3D if needed (09/20/2017 6:36 PM CDT) Narrative Performed At [facility] Echocardiography Report [id number] [facility], [facility] [address], [place] [address] Pat.Name:Jo VELA.ID:[id number] .Date: 09/20/2017 Refer.MD:TAMERA LOCO MD Exam Time: 4:55:00 PMStudy Type:Routine Echo Height:63inWeight:158lb BSA: 1.75 m2 DOBAge:1950,66Y Sex: FEMALEBP:123/55 HR:79 bpmSonogrphr: Aki Holden RDCS Pat. Stat.:Inpatient Room:[facility] Study Status:Final Echo Event ID:[id number] Order ID:[id number] Reason for Study:Pre TIPS evaluation. Please perform bubble study. History / Clinical:Coronary Artery Disease, Diabetes, Hypertension Procedures:2D Echo, Colorflow Doppler, Portable, Stat, Intravenous Saline Contrast Race:C SUMMARY: LV EF is hyperdynamic. RV systolic function is normal. Delayed contrast appears in the left atrium after 4 cardiac cycles consistent with transpulmonary shunting. FINDINGS: LV: LV size is normal. Concentric left ventricular remodeling. LVEF is hyperdynamic. Overall wall motion is hyperdynamic. EstimatedEF is >70%. RV: RV size is normal. RV systolic function is normal. RV wall motionis normal. LA: LA volume is moderately enlarged. RA: RA size is normal. AO: Aortic root diameter is normal. YESY: No pericardial effusion. Cntrst: Delayed contrast appears in the left atrium after 4 cardiac cyclesconsistent with transpulmonary shunting. AV: Mild thickening of AV leaflets. MV: Mild thickening and calcification of mitral leaflets. Thickenedand/or calcified chordae. PV: No structural PV abnormalities noted. TV: No structural TV abnormalities noted. Mild tricuspid regurgitation Anderson: LV relaxation is reduced, appropriate for age. LV filling pressureis elevated. Other:Estimated PA systolic pressure is 59 mmHg, assuming a mean RAPof 10 mmHg. MEASUREMENTS: 2D Parasternal [place] Ao An2.1 cmLVPWd1.3 cm LVOT 1.9 cmLA Ds3.9 cm LVIDd4.3 cmIndex2.5 cm/m Ao Rtd 3 cm Index1.7 cm/m LVIDs2.4 cmLV Avux988.2 g(87-129) LV%fs 43.6 % LVM Index 92.7 g/m2 IVSd 0.9 cmRWT0.6 LA Sng Plane LA Area 23.5 cm2(8.8-23.4) LA Vol77.2 ml Index44.1 ml/m LA LngAx 5.5 cm RA Sng Plane RA Area 17 cm2(8.3-19.5) RA Vol45.1 ml Index25.8 ml/m RA LngAx 5.3 cm DOPPLER LVOT Stroke Vol LVOT 2.1 cmLVOT CO5.7 l/min LVOT TVI22.4 cmLVOT CI3.3 l/m/m2 LVOT Tm336 [id number] bpm LVOT SV 77.6 ml Signed 09/21/2017 02:20 PM Jacquelin Carranza M.D. Procedure Note Interface, Radiology Results In - 09/21/2017 2:20 PM CDT Echocardiography Report [id number] [address] Pat.Name: NILSA VELA Pat.ID: [id number] .Date: 09/20/2017 Refer.MD: TAMERA LOCO MD Exam Time: 4:55:00 PM Study Type:Routine Echo Height: 63in Weight: 158lb BSA: 1.75 m2 Age: 9 1950,66Y Sex: FEMALE BP: 123/55 HR: 79 bpm Sonogrphr: THONG Ferris. Stat.:Inpatient Room: [facility] Study Status:Final Echo Event ID:[id number] Order ID: [id number] Reason for Study:Pre TIPS evaluation. Please perform bubble study. History / Clinical:Coronary Artery Disease, Diabetes, Hypertension Procedures:2D Echo, Colorflow Doppler, Portable, Stat, Intravenous Saline Contrast Race: C SUMMARY: LV EF is hyperdynamic. RV systolic function is normal. Delayed contrast appears in the left atrium after 4 cardiac cycles consistent with transpulmonary shunting. FINDINGS: LV: LV size is normal. Concentric left ventricular remodeling. LV EF is hyperdynamic. Overall wall motion is hyperdynamic. Estimated EF is >70%. RV: RV size is normal. RV systolic function is normal. RV wall motion is normal. LA: LA volume is moderately enlarged. RA: RA size is normal. AO: Aortic root diameter is normal. YESY: No pericardial effusion. Cntrst: Delayed contrast appears in the left atrium after 4 cardiac cycles consistent with transpulmonary shunting. AV: Mild thickening of AV leaflets. MV: Mild thickening and calcification of mitral leaflets. Thickened and/or calcified chordae. PV: No structural PV abnormalities noted. TV: No structural TV abnormalities noted. Mild tricuspid regurgitation Anderson: LV relaxation is reduced, appropriate for age. LV filling pressure is elevated. Other: Estimated PA systolic pressure is 59 mmHg, assuming a mean RAP of 10 mmHg. MEASUREMENTS: 2D Parasternal Long [place] Ao An 2.1 cm LVPWd 1.3 cm LVOT 1.9 cm LA Ds 3.9 cm LVIDd 4.3 cm Index 2.5 cm/m Ao Rtd 3 cm Index 1.7 cm/m LVIDs 2.4 cm LV Mass 162.2 g (87-129) LV%fs 43.6 % LVM Index 92.7 g/m2 IVSd 0.9 cm RWT 0.6 LA Sng Plane LA Area 23.5 cm2 (8.8-23.4) LA Vol 77.2 ml Index 44.1 ml/m LA LngAx 5.5 cm RA Sng Plane RA Area 17 cm2 (8.3-19.5) RA Vol 45.1 ml Index 25.8 ml/m RA LngAx 5.3 cm DOPPLER LVOT Stroke Vol LVOT 2.1 cm LVOT CO 5.7 l/min LVOT TVI 22.4 cm LVOT CI 3.3 l/m/m2 LVOT Tm 336 msec HR 74 bpm LVOT SV 77.6 ml Signed 09/21/2017 02:20 PM Jacquelin Carranza M.D. Performing Organization Address City/State/Zipcode Phone Number [facility] [address] [place] [address] * Thyroid stimulating hormone (09/20/2017 4:31 PM CDT) TSH 1.04 0.27 - 4.20 uIU/mL [facility] DEPARTMENT OF PATHOLOGY AND GENOMIC MEDICINE Specimen Plasma specimen Performing Organization Address City/[facility] Phone Number [facility] [place] [address] PATHOLOGY AND GENOMIC MEDICINE * Anti smooth muscle Ab screen (09/20/2017 4:15 PM CDT) Anti smooth muscle Ab Not Detected Not-Detected [facility] DEPARTMENT OF screen PATHOLOGY AND GENOMIC MEDICINE Specimen Blood Performing Organization Address City/[facility] Phone Number [facility] [place] [address] PATHOLOGY AND GENOMIC MEDICINE * JESSY titer (09/20/2017 4:15 PM CDT) JESSY titer 1:80 (A) Not-Detected [facility] DEPARTMENT OF PATHOLOGY AND GENOMIC MEDICINE JESSY titer 1 1:80 (A) Not-Detected [facility] DEPARTMENT OF PATHOLOGY AND GENOMIC MEDICINE JESSY pattern Homogeneous (A) Not-Detected [facility] DEPARTMENT OF PATHOLOGY AND GENOMIC MEDICINE Specimen Blood Performing Organization Address [facility] Phone Number [facility] [place] [address] PATHOLOGY AND [facility] MEDICINE * Anti mitochondria screen (09/20/2017 4:15 PM CDT) Anti mitochondria screen Not Detected Not-Detected [facility] DEPARTMENT OF PATHOLOGY AND GENOMIC MEDICINE Specimen Blood Performing Organization Address [facility] Phone Number [facility] [place] [address] PATHOLOGY AND GENOMIC MEDICINE * JESSY (09/20/2017 4:15 PM CDT) JESSY screen Positive (A) Negative [facility] DEPARTMENT OF PATHOLOGY AND GENOMIC MEDICINE Specimen Blood Performing Organization Address [facility] Phone Number [facility] [place] [address] PATHOLOGY AND GENOMIC MEDICINE * Thromboelastograph (09/20/2017 3:28 PM CDT) TEG R time 9.7 min [facility] DEPARTMENT OF PATHOLOGY AND GENOMIC MEDICINE TEG K time 1.7 min [facility] DEPARTMENT OF PATHOLOGY AND GENOMIC MEDICINE TEG angle 67.0 Deg [facility] DEPARTMENT OF PATHOLOGY AND GENOMIC MEDICINE TEG max amplitude 67.5 mm [facility] DEPARTMENT OF PATHOLOGY AND GENOMIC MEDICINE TEG coagulation index -1.40 Index [facility] DEPARTMENT OF PATHOLOGY AND GENOMIC MEDICINE TEG fibrinolysis/30 0.0 % [facility] DEPARTMENT OF Comment: PATHOLOGY AND Reference Ranges for TEG: GENOMIC MEDICINE Test: UnitsKaoli n:Citrate Kaolin: Rmin 3.7-8.3 2.5-7.5 Kmin 0.5-3.7 0.8-2.8 AngleDeg 46.8-73.6 55.2-78.4 MA mm54.5-72. 5 50.6-69.4 Gd/sc [id number] CI Index-3.0 - 3.0-3.0 - 3.0 LY30 % 0.0 - 7.5 0.0 - 7.5 Specimen description, TEG OTHERS [facility] DEPARTMENT OF PATHOLOGY AND GENOMIC MEDICINE Sample type, TEG CK [facility] DEPARTMENT OF PATHOLOGY AND GENOMIC MEDICINE TEG SP time 9.0 min [facility] DEPARTMENT OF PATHOLOGY AND GENOMIC MEDICINE TEG G 10,388.3 d/sc [facility] DEPARTMENT OF PATHOLOGY AND GENOMIC MEDICINE Specimen Plasma specimen Performing Organization Address City/[facility] [place] [address] PATHOLOGY AND GENOMIC MEDICINE * Fibrinogen (09/20/2017 3:28 PM CDT) Fibrinogen 359 200 - 450 mg/dL [facility] DEPARTMENT OF PATHOLOGY AND GENOMIC MEDICINE Specimen Blood Performing Organization Address [facility] [place] [address] PATHOLOGY AND GENOMIC MEDICINE * US Abdominal Doppler (09/20/2017 2:42 PM CDT) Narrative Performed At EXAMINATION:US ABDOMINAL DOPPLER RADIANT CLINICAL HISTORY:Pre TIPS evaluation COMPARISON:None. TECHNIQUE: Grayscale, color Doppler and spectral waveform analysis of the hepatic vasculature. IMPRESSION: 1.Main portal vein is patent with hepatopedal flow and measures 13 mm in caliber. Flow velocity is 19 cm/s. The left portal vein and anterior and posterior branch of the right portal vein are patent with hepatopedal flow. 2.The middle, right, left hepatic veins are patent. 3.Hepatic artery patent with normal waveform as the right left hepatic artery branches. 4.Visualized portion of the hepatic IVC are patent. 5.Splenic artery and vein are patent where visualized. Flow velocity in the splenic vein is 14.4-19.1 cm/s. The flow velocity in the SMV at the splenoportal confluence is 16.8 cm/s. [facility]-[id number] Procedure Note Interface, Radiology Results Incoming - 09/20/2017 2:57 PM CDT EXAMINATION: US ABDOMINAL DOPPLER CLINICAL HISTORY: Pre TIPS evaluation COMPARISON: None. TECHNIQUE: Grayscale, color Doppler and spectral waveform analysis of the hepatic vasculature. IMPRESSION: 1. Main portal vein is patent with hepatopedal flow and measures 13 mm in caliber. Flow velocity is 19 cm/s. The left portal vein and anterior and posterior branch of the right portal vein are patent with hepatopedal flow. 2. The middle, right, left hepatic veins are patent. 3. Hepatic artery patent with normal waveform as the right left hepatic artery branches. 4. Visualized portion of the hepatic IVC are patent. 5. Splenic artery and vein are patent where visualized. Flow velocity in the splenic vein is 14.4-19.1 cm/s. The flow velocity in the SMV at the splenoportal confluence is 16.8 cm/s. [facility]-[id number] Performing Organization Address City/[facility] Phone Number [facility] [address] [place] [address] * Lactic acid level (09/19/2017 3:25 PM CDT) Only the most recent of 2 results within the time period is included. Lactic acid 1.1 0.5 - 2.2 mmol/L [facility] DEPARTMENT OF PATHOLOGY AND GENOMIC MEDICINE Specimen Blood Performing Organization Address [facility] Phone Number [facility] DEPARTMENT OF [address] [place] [address] PATHOLOGY AND GENOMIC MEDICINE * US Abdomen Complete (09/19/2017 10:23 AM CDT) Narrative Performed At EXAM: US ABDOMEN COMPLETE [facility] CLINICAL DATA:CIRRHOSIS COMPARISON: NONE. FINDINGS: LIVER:The liver appears cirrhotic. No discrete liver mass is seen. MPV:Doppler evaluation of the portal vein demonstrates normal hepatopetal flow. GALLBLADDER:Removed CBD: 8 mm, within normal limits after cholecystectomy. PANCREAS:The visualized portions of the pancreas are within normal limits. SPLEEN:Mildly enlarged at 13.9 x 6.2 x 6.9 cm. RIGHT KIDNEY:10.8 cm length.The right kidney is normal in size and echogenicity. There is no evidence of mass, calculi, or hydronephrosis. LEFT KIDNEY:11.3 cm length.The left kidney is normal in size and echogenicity. There is no evidence of mass, calculi, or hydronephrosis. AORTA:The visualized upper abdominal aorta demonstrates no evidence of ectasia or aneurysm. IVC:The visualized portions of the inferior vena cava are unremarkable. IMPRESSION: Cirrhosis mild splenomegaly. [id number] Procedure Note Hm Interface, Radiology Results Incoming - 09/19/2017 12:33 PM CDT EXAM: US ABDOMEN COMPLETE CLINICAL DATA: CIRRHOSIS COMPARISON: NONE. FINDINGS: LIVER: The liver appears cirrhotic. No discrete liver mass is seen. MPV: Doppler evaluation of the portal vein demonstrates normal hepatopetal flow. GALLBLADDER: Removed CBD: 8 mm, within normal limits after cholecystectomy. PANCREAS: The visualized portions of the pancreas are within normal limits. SPLEEN: Mildly enlarged at 13.9 x 6.2 x 6.9 cm. RIGHT KIDNEY: 10.8 cm length. The right kidney is normal in size and echogenicity. There is no evidence of mass, calculi, or hydronephrosis. LEFT KIDNEY: 11.3 cm length. The left kidney is normal in size and echogenicity. There is no evidence of mass, calculi, or hydronephrosis. AORTA: The visualized upper abdominal aorta demonstrates no evidence of ectasia or aneurysm. IVC: The visualized portions of the inferior vena cava are unremarkable. IMPRESSION: Cirrhosis mild splenomegaly. [id number] Performing Organization Address [facility] [place] [address] * Hepatitis acute panel (09/19/2017 9:16 AM CDT) Hepatitis A IgM Non-reactive Non-reactive [facility] DEPARTMENT OF PATHOLOGY AND GENOMIC MEDICINE Hepatitis B core IgM Non-reactive Non-reactive [facility] DEPARTMENT OF PATHOLOGY AND GENOMIC MEDICINE Hepatitis B surface Ag Non-reactive Non-reactive [facility] DEPARTMENT OF PATHOLOGY AND GENOMIC MEDICINE Hepatitis C Ab Non-reactive Non-reactive [facility] DEPARTMENT OF PATHOLOGY AND GENOMIC MEDICINE Specimen Serum Performing Organization Address [facility] Phone Number [address] [address] PATHOLOGY AND GENOMIC MEDICINE * Hemoglobin A1c (09/19/2017 8:49 AM CDT) Hemoglobin A1C 6.7 (H) 4.0 - 5.6 % [facility] DEPARTMENT OF Comment: PATHOLOGY AND HbA1c cutoffs for diagnosing GENOMIC MEDICINE diabetes: 4.0% - 5.6%=normal 5.7% - 6.4%=increased risk for diabetes (prediabetes) >=6.5%=diabetes Goals for glycemic control (ADA 2016) < 7.0%Target for non adults with diabetes. More or less stringent targets may be appropriate for individual patients. <7.5% Target for Children and adolescents with type 1 diabetes. Performing Organization Address City/[facility] Phone Number [facility] DEPARTMENT OF [address] [place] [address] PATHOLOGY AND GENOMIC MEDICINE * Lactic acid level, SEPSIS - Now and repeat 2x every 3 hours (09/19/2017 12:16 AM CDT) Only the most recent of 2 results within the time period is included. Lactic acid 2.2 0.5 - 2.2 mmol/L [facility] DEPARTMENT OF PATHOLOGY AND GENOMIC MEDICINE Specimen Blood Performing Organization Address [facility] Phone Number [facility] DEPARTMENT OF [address] [place] [address] PATHOLOGY AND GENOMIC MEDICINE * Blood culture, aerobic & anaerobic (09/18/2017 11:33 PM CDT) Only the most recent of 2 results within the time period is included. Blood culture isolate No growth after 5 days of [facility] DEPARTMENT OF incubation. PATHOLOGY AND Comment: GENOMIC MEDICINE Specimen Information Specimen Source: Blood Specimen Site: Antecubital, right Specimen Blood - Antecubital, right Performing Organization Address City/[facility] Phone Number [facility] DEPARTMENT OF [address] [place] [address] PATHOLOGY AND GENOMIC MEDICINE after 07/21/2017 Insurance Payer Benefit Subscriber ID Type Phone Address Plan / Group [employer] C[employer]NA xxxxxxxx [employer] [facility] [place] (Home) [place] [address] Advance Directives Patient has advance care planning documents on file. For more information, alix clinton contact: Maulik Dhillon [address] [place] [phone]
--- OUTSIDE RECORDS SUMMARY | 2018-07-22 09:41 | XMS REPORT ---
Author Author [facility] Address Unknown Phone Unavailable Care Team Providers Care Rn Call Center Name Role Phone Unavailable Unavailable Payers Payer Name Policy Type Policy Number Effective Date Expiration Date Problems This patient has no known problems. Allergies, Adverse Reactions, Alerts Allergy Name Allergy Type Status Severity Reaction(s) Onset Date Inactive Date Treating Clinician Comments No Known Allergies DA Active U 2017-09-10 00:00:00 Medications This patient has no known medications. Results Test Description Test Time Test Comments Text Results Atomic Results Result Comments CBC W/AUTO DIFF 2018-07-18 15:52:00 WHITE BLOOD CELL (test code=WBC) 4.8 K/mm3 4.5-12.5 RED BLOOD CELL (test code=RBC) 3.36 mill/mm3 3.7-5.2 HEMOGLOBIN (test code=HGB) 9.2 gram/dL 11.5-15.5 RESULT VERIFIED BY REPEAT ANALYSIS HEMATOCRIT (test code=HCT) 29.7 % 36.0-46.0 MEAN CELL VOLUME (test code=MCV) 88.4 fL 80-98 MEAN CELL HGB (test code=MCH) 27.4 picogram 27.0-33.0 MEAN CELL HGB CONCETRATION (test code=MCHC) 31.0 gram/dL 33.0-36.0 RED CELL DISTRIBUTION WIDTH (test code=RDW) 14.3 % 11.6-16.2 RED CELL DISTRIBUTION WIDTH SD (test code=RDW-SD) 46.0 fL 37.0-51.0 PLATELET COUNT (test code=PLT) 180 K/mm3 150-450 MEAN PLATELET VOLUME (test code=MPV) 10.4 fL 6.7-11.0 NEUTROPHIL % (test code=NT%) 73.5 % 39.0-69.0 IMMATURE GRANULOCYTE % (test code=IG%) 0.4 % 0.0-5.0 LYMPHOCYTE % (test code=LY%) 15.8 % 25.0-55.0 MONOCYTE % (test code=MO%) 7.2 % 0.0-10.0 EOSINOPHIL % (test code=EO%) 2.7 % 0.0-5.0 BASOPHIL % (test code=BA%) 0.4 % 0.0-1.0 NUCLEATED RBC % (test code=NRBC%) 0.0 % 0-0 NEUTROPHIL # (test code=NT#) 3.49 K/mm3 1.8-7.7 IMMATURE GRANULOCYTE # (test code=IG#) 0.02 x10 3/uL 0-0.03 LYMPHOCYTE # (test code=LY#) 0.75 K/mm3 1.0-5.0 MONOCYTE # (test code=MO#) 0.34 K/mm3 0-0.8 EOSINOPHIL # (test code=EO#) 0.13 K/mm3 0.0-0.5 BASOPHIL # (test code=BA#) 0.02 K/mm3 0.0-0.2 NUCLEATED RBC # (test code=NRBC#) 0.00 K/mm3 0.0-0.1 MANUAL DIFF REQUIRED (test code=MDIFF) NO [id number] 12:08:00* Test Item Value Reference Range Comments GLUBED (test code=GLUBED) 402 mg/dL 74-106 Performed by certified gasoline tractor operator at [facility] [id number] 11:08:00* Test Item Value Reference Range Comments GLUBED (test code=GLUBED) 196 mg/dL 74-106 Performed by certified gasoline tractor operator at [facility] [id number] 20:54:00* Test Item Value Reference Range Comments GLUBED (test code=GLUBED) 243 mg/dL 74-106 Performed by certified gasoline tractor operator at [facility] [id number] 16:35:00* Test Item Value Reference Range Comments GLUBED (test code=GLUBED) 456 mg/dL 74-106 Performed by certified gasoline tractor operator at [facility] BASIC METABOLIC [id number] 11:27:00* Test Item Value Reference Range Comments SODIUM (test code=NA) 138 mmol/L 136-145 POTASSIUM (test code=K) 3.9 mmol/L 3.5-5.1 CHLORIDE (test code=CL) 108.0 mmol/L 98-107 CARBON DIOXIDE (test code=CO2) 21.0 mmol/L 21-32 ANION GAP (test code=GAP) 12.9 10-20 GLUCOSE (test code=GLU) 226 mg/dL 74-106 BLOOD UREA NITROGEN (test code=BUN) 21 mg/dL 7-18 GLOMERULAR FILTRATION RATE (test code=GFR) 49 mL/min >=60 Estimated GFR by using Modified MDRD formula.Chronic kidney disease is defined as either kidney damageor GFR <60 mL/min/1.73 m2 for >3 months. CREATININE (test code=CREAT) 1.10 mg/dL 0.55-1.02 Note change in reference range due to change in reagent. BUN/CREATININE RATIO (test code=BUN/CREA) 19.1 10-20 CALCIUM (test code=CA) 8.4 mg/dL 8.5-10.1 [id number] 11:25:00* Test Item Value Reference Range Comments GLUBED (test code=GLUBED) 330 mg/dL 74-106 Performed by certified gasoline tractor operator at [facility] CBC W/AUTO [id number] 11:09:00* Test Item Value Reference Range Comments WHITE BLOOD CELL (test code=WBC) 6.8 K/mm3 4.5-12.5 RED BLOOD CELL (test code=RBC) 2.44 mill/mm3 3.7-5.2 HEMOGLOBIN (test code=HGB) 7.0 gram/dL 11.5-15.5 HEMATOCRIT (test code=HCT) 22.3 % 36.0-46.0 MEAN CELL VOLUME (test code=MCV) 91.4 fL 80-98 MEAN CELL HGB (test code=MCH) 28.7 picogram 27.0-33.0 MEAN CELL HGB CONCETRATION (test code=MCHC) 31.4 gram/dL 33.0-36.0 RED CELL DISTRIBUTION WIDTH (test code=RDW) 13.1 % 11.6-16.2 RED CELL DISTRIBUTION WIDTH SD (test code=RDW-SD) 43.4 fL 37.0-51.0 PLATELET COUNT (test code=PLT) 153 K/mm3 150-450 MEAN PLATELET VOLUME (test code=MPV) 11.7 fL 6.7-11.0 NEUTROPHIL % (test code=NT%) 89.0 % 39.0-69.0 IMMATURE GRANULOCYTE % (test code=IG%) 0.3 % 0.0-5.0 LYMPHOCYTE % (test code=LY%) 5.3 % 25.0-55.0 MONOCYTE % (test code=MO%) 4.7 % 0.0-10.0 EOSINOPHIL % (test code=EO%) 0.4 % 0.0-5.0 BASOPHIL % (test code=BA%) 0.3 % 0.0-1.0 NUCLEATED RBC % (test code=NRBC%) 0.0 % 0-0 NEUTROPHIL # (test code=NT#) 6.06 K/mm3 1.8-7.7 IMMATURE GRANULOCYTE # (test code=IG#) 0.02 x10 3/uL 0-0.03 LYMPHOCYTE # (test code=LY#) 0.36 K/mm3 1.0-5.0 MONOCYTE # (test code=MO#) 0.32 K/mm3 0-0.8 EOSINOPHIL # (test code=EO#) 0.03 K/mm3 0.0-0.5 BASOPHIL # (test code=BA#) 0.02 K/mm3 0.0-0.2 NUCLEATED RBC # (test code=NRBC#) 0.00 K/mm3 0.0-0.1 MANUAL DIFF REQUIRED (test code=MDIFF) NO [id number] 11:05:00* Test Item Value Reference Range Comments GLUBED (test code=GLUBED) 274 mg/dL 74-106 Performed by certified gasoline tractor operator at [facility] [id number] 22:16:00* Test Item Value Reference Range Comments GLUBED (test code=GLUBED) 177 mg/dL 74-106 Performed by certified gasoline tractor operator at [facility] B-TYPE NATRIURETIC [id number] 19:28:00* Test Item Value Reference Range Comments B-TYPE NATRIURETIC PEPTIDE (test code=BNP) 156 pg/mL 0-100 COMPREHENSIVE METABOLIC [id number] 19:07:00* Test Item Value Reference Range Comments SODIUM (test code=NA) 138 mmol/L 128-145 POTASSIUM (test code=K) 4.1 mmol/L 3.5-5.1 CHLORIDE (test code=CL) 103.0 mmol/L 98-107 CARBON DIOXIDE (test code=CO2) 22.1 mmol/L 22-29 ANION GAP (test code=GAP) 17 mmol/L 10-20 GLUCOSE (test code=GLU) 271 mg/dL 70-110 BLOOD UREA NITROGEN (test code=BUN) 18 mg/dL 7-22 CREATININE (test code=CREAT) 1.07 mg/dL 0.55-1.3 BUN/CREATININE RATIO (test code=BUN/CREA) 16.8 10-20 TOTAL PROTEIN (test code=PROT) 7.4 gram/dL 6.1-7.8 ALBUMIN (test code=ALB) 3.2 g/dL 3.3-4.4 GLOBULIN (test code=GLOB) 4.2 G/DL 1-10 ALBUMIN/GLOBULIN RATIO (test code=A/G) 0.8 0.75-1.50 CALCIUM (test code=CA) 9.3 mg/dL 8.0-10.5 BILIRUBIN TOTAL (test code=BILT) 0.40 mg/dL 0.2-1.2 SGOT/AST (test code=AST) 20 U/L 10-39 SGPT/ALT (test code=ALT) 24 U/L 10-69 ALKALINE PHOSPHATASE TOTAL (test code=ALKP) 91 U/L 50-139 COMPREHENSIVE METABOLIC [id number] 19:02:00* Test Item Value Reference Range Comments SODIUM (test code=NA) 138 mmol/L 128-145 POTASSIUM (test code=K) 4.1 mmol/L 3.5-5.1 CHLORIDE (test code=CL) 103.0 mmol/L 98-107 CARBON DIOXIDE (test code=CO2) 22.1 mmol/L 22-29 ANION GAP (test code=GAP) 17 mmol/L 10-20 GLUCOSE (test code=GLU) 271 mg/dL 70-110 BLOOD UREA NITROGEN (test code=BUN) 18 mg/dL 7-22 CREATININE (test code=CREAT) 1.07 mg/dL 0.55-1.3 BUN/CREATININE RATIO (test code=BUN/CREA) 16.8 10-20 TOTAL PROTEIN (test code=PROT) gram/dL 6.4-8.2 ALBUMIN (test code=ALB) g/dL 3.4-5.0 GLOBULIN (test code=GLOB) G/DL 1-10 ALBUMIN/GLOBULIN RATIO (test code=A/G) 0.75-1.50 CALCIUM (test code=CA) 9.3 mg/dL 8.0-10.5 BILIRUBIN TOTAL (test code=BILT) mg/dL 0.0-1.0 SGOT/AST (test code=AST) IUnit/L 15-37 SGPT/ALT (test code=ALT) IUnit/L 12-78 ALKALINE PHOSPHATASE TOTAL (test code=ALKP) IUnit/L 45-117 CBC W/AUTO [id number] 18:59:00* Test Item Value Reference Range Comments WHITE BLOOD CELL (test code=WBC) 3.5 K/mm3 4.5-12.5 RED BLOOD CELL (test code=RBC) 2.40 mill/mm3 3.7-5.2 HEMOGLOBIN (test code=HGB) 7.0 gram/dL 11.5-15.5 HEMATOCRIT (test code=HCT) 21.7 % 36.0-46.0 Results called to Shahzad HENRY V.[email or web address].PG 07/16/18 [id number] results verified and read back by Nurse? Y MEAN CELL VOLUME (test code=MCV) 90.4 fL 80-98 MEAN CELL HGB (test code=MCH) 29.2 picogram 27.0-33.0 MEAN CELL HGB CONCETRATION (test code=MCHC) 32.3 gram/dL 33.0-36.0 RED CELL DISTRIBUTION WIDTH (test code=RDW) 12.9 % 11.6-16.2 RED CELL DISTRIBUTION WIDTH SD (test code=RDW-SD) 43.2 fL 37.0-51.0 PLATELET COUNT (test code=PLT) 136 K/mm3 150-450 MEAN PLATELET VOLUME (test code=MPV) 9.5 fL 6.7-11.0 NEUTROPHIL % (test code=NT%) 76.8 % 39.0-69.0 LYMPHOCYTE % (test code=LY%) 13.9 % 25.0-55.0 MONOCYTE % (test code=MO%) 6.1 % 0.0-10.0 EOSINOPHIL % (test code=EO%) 2.9 % 0.0-5.0 BASOPHIL % (test code=BA%) 0.3 % 0.0-1.0 NEUTROPHIL # (test code=NT#) 2.65 K/mm3 1.8-7.7 LYMPHOCYTE # (test code=LY#) 0.48 K/mm3 1.0-5.0 MONOCYTE # (test code=MO#) 0.21 K/mm3 0-0.8 EOSINOPHIL # (test code=EO#) 0.10 K/mm3 0.0-0.5 BASOPHIL # (test code=BA#) 0.01 K/mm3 0.0-0.2 - XR CHEST 1 [id number] 18:57:00 FAX: Andrew Bhatti [phone] [place]: [place] [address]: REG FAX: Alexi Sharp [phone] Name: NILSA VELA [facility] FS : 1950 Age/S: 67/F [address] [facility] [address] Unit #: [id number] Loc: [facility] [address] Phys: Alexi Sharp MD [place], [place] [address] Acct: [id number] Dis Date: Status: REG ER PHONE #: Exam Date: 07/16/2018 1850 FAX #: Reason: sob EXAMS: CPT CODE: [id number] XR CHEST 1 V [id number] REASON FOR EXAM: sob EXAM ORDER DATE: 07/16/2018 6:25 PM Ordering Soheila: Alexi Sharp MD PROCEDURE: - XR CHEST 1 V COMPARISON: FINDINGS: Portable AP frontal view of the chest obtained at 6:44 PM shows clear lungs without evidence of consolidation. There is no evidence of effusion. The heart size is minimally enlarged. Pulmonary vasculatures are minimally congested. IMPRESSION: Congestive heart failure with interstitial pulmonary edema at 1857 Reported and signed by: Jose A Bernal M.D. CC: Andrew Joyner; Alexi Sharp MD Technologist: Mercedez Macedo Trnscrd Date/Time/By: 07/16/2018 (059) : By: Sharron Orig Print D/T: S: 07/16/2018 (1736) PAGE 1 Signed Report
[2018-07-22 13:34] VITALS: BP 106/48
== END | disposition home or self-care (01) ==
LOC: OR 09:33
PROVIDERS: ATTEND Internal Medicine
DX: D50.9 Iron deficiency anemia, unspecified (principal); E11.9 Type 2 diabetes mellitus without complications; I10 Essential (primary) hypertension; K92.1 Melena; Z93.3 Colostomy status; Z90.49 Acquired absence of other specified parts of digestive tract; D12.0 Benign neoplasm of cecum; Z01.810 Encounter for preprocedural cardiovascular examination; Z01.812 Encounter for preprocedural laboratory examination
CPT/HCPCS: 36415 ×2; 44389; 82948; 85025; 93005; J2250; J2704; 45380